=== PATIENT | male | born 1985 | race Caucasian/White ===

== ENCOUNTER → 2016-12-17 | Outpatient (CLI) | payer OTHER ==
--- NOTE | 2016-12-17 08:33 | DIAGNOSTIC IMAGING REPORT ---
MRI OF THE LEFT KNEE CLINICAL HISTORY: Left knee pain. COMPARISON STUDY: Radiograph is a left knee dated 12/03/2016. TECHNIQUE: MRI of the left knee was performed utilizing proton density, T1, and T2-weighted sequences in the axial, sagittal, coronal planes. IV contrast was not administered for this examination. FINDINGS: Menisci: The medial meniscus appears truncated with no discrete tear identified. The lateral meniscus appears intact. Ligaments: The anterior and posterior cruciate ligaments are intact. The medial and lateral collateral ligaments are within normal limits. Extensor mechanism: The extensor mechanism is intact. Hoffa's fat pad is normal in appearance. Articular cartilage and bone: There is an 8 mm osteal defect identified injury along the weightbearing surface in the lateral compartment, best seen on coronal T1 image #17. There is only minimal surrounding marrow edema, and only minimal thinning of the overlying articular cartilage. The articular cartilage is otherwise well maintained throughout all 3 compartments. Joint effusion: There is trace joint fluid. Soft tissues: The musculature surrounding the knee joint is normal in bulk and signal intensity. IMPRESSION: 1. There is no evidence of ligamentous injury in the left knee. 2. There is an 8 mm osteal defect identified along the weightbearing surface in the lateral femoral condyle. There is only minimal marrow edema, and only mild thinning of the overlying cartilage. The appearance suggests an impaction type injury. Osteochondritis desiccation is considered less likely based on the location and appearance but is the top differential consideration. Clinical correlation will be required. 3. The medial meniscus appears slightly truncated/diminutive, with no clear tear identified. Correlate clinically for history of previous tear or surgery. The lateral meniscus is intact. Electronically signed by: Marcel Patel M.D. 12/17/2016 8:32 AM Dictated Date/Time: 12/17/2016 8:06 AM
== END | disposition home or self-care (01) ==
LOC: C.MRIBC 06:45
PROVIDERS: ATTEND Orthopaedic Surgery
DX: M25.562 Pain in left knee (principal)

== ENCOUNTER → 2018-07-10 | Day surgery (SDC) | payer OTHER ==
[2018-07-05 11:20] VITALS: BMI 29.0
[~2018-07-10] VITALS: Ht 193 cm; Wt 110.0 kg
[~2018-07-10] MED LIST: CHOLPOW PO; ESCI1TAB10 PO; LISD40CA PO; LYSI500C4 PO; MULT-506 PO; PROPOFOL IV EMULSION 10 MG/ML 20 ML VIAL ONE; SODIUM CHLORIDE 0.9% 500ML 500 ML IV ONE
[2018-07-10 12:14] VITALS: Ht 193 cm; Wt 110.0 kg
--- NOTE | 2018-07-10 12:50 | Endo History and Physical ---
History & Physical Date of Service: Jul 10, 2018. Chief Complaint: RECTAL BLEEDING Referring Physician: DR. ARROYO History of Present Illness 32 yo CM who presents for colonoscopy secondary to rectal bleeding. Past Surgical History Hx Cardiac Surgery: No Hx Internal Defibrillator: No Hx Pacemaker: No Hx Abdominal Surgery: No Hx of Implantable Prosthesis: No Hx Post-Op Nausea and Vomiting: No Hx Cancer Surgery: No Hx Thoracic Surgery: No Hx Orthopedic: Yes (PLANTAR WORT REMOVAL AT 8 YRS OLD(PT STATES HE HAD GENERAL ANESTHESIA)) Hx Urinary Tract Surgery: No Family History Colon CA, Polyp Social History Smoking Status: Current Some Day Smoker Hx Substance Use: Yes (1 MARIJUANA JOINT EVERY COUPLE MONTHS) Hx Alcohol Use: Yes (OCCASIONAL) Allergies Coded Allergies: Peanut (Verified Allergy, Intermediate, HIVES, 07/05/18) Nickel (Verified Allergy, Mild, RASH, 07/05/18) Current Medications Reported Home Medications Medications Dose Route/Sig Max Daily Dose Days Date Category Vyvanse (Lisdexamfetamine Dimesylate) 40 Mg Cap 40 Mg PO QAM 07/05/18 Reported Multivitamin (Multivitamins) Tab 1 Tab PO DAILY 07/05/18 Reported L-Lysine (Lysine) 500 Mg Cap 1 Cap PO DAILY 07/05/18 Reported Lexapro (Escitalopram Oxalate) 20 Mg Tab 20 Mg PO QPM 07/05/18 Reported Cholestyramine (Cholestyramine (Bulk)) 1 Pow Pow 1 Dose PO DAILY 07/05/18 Reported Vital Signs Weight (Kilograms): 110.00 Height (Feet): 6 Height (Inches): 4 Date Time Temp Pulse Resp B/P (MAP) Pulse Ox O2 Delivery O2 Flow Rate FiO2 07/10/18 12:13 36.9 66 18 140/76 (97) 99 Room Air Physical Exam General Appearance: WD/WN, no apparent distress Respiratory/Chest: Auscultation: breath sounds normal Cardiovascular: Heart Auscultation: RRR Abdomen: Bowel Sounds: normal Inspection & Palpation: soft, non-distended, no tenderness, guarding & rebound Assessment and Plan Assessment: 32 yo CM who presents for colonoscopy secondary to rectal bleeding. Plan: Proceed with colonoscopy.
--- NOTE | 2018-07-10 13:21 | GI REPORT ---
Patient Name: Jesus Manuel Villagomez Procedure Date: 07/10/2018 12:39 PM Date of : 1985 Admit Type: Outpatient Age: 32 Gender: Male Attending MD: Maurice Agrawal DO Procedure: Colonoscopy Providers: Maurice Agrawal DO Referring MD: Bobbi Bruno Indications: Rectal bleeding Medicines: Monitored Anesthesia Care Complications: No immediate complications. Estimated Blood Loss: Estimated blood loss: none. Procedure: Pre-Anesthesia Assessment: - Prior to the procedure, a History and Physical was performed, and patient medications and allergies were reviewed. The patient's tolerance of previous anesthesia was also reviewed. The risks and benefits of the procedure and the sedation options and risks were discussed with the patient. All questions were answered, and informed consent was obtained. Prior Anticoagulants: The patient has taken no previous anticoagulant or antiplatelet agents. ASA Grade Assessment: II - A patient with mild systemic disease. After reviewing the risks and benefits, the patient was deemed in satisfactory condition to undergo the procedure. After I obtained informed consent, the scope was passed under direct vision. Throughout the procedure, the patient's blood pressure, pulse, and oxygen saturations were monitored continuously. The Scope was introduced through the anus and advanced to the terminal ileum. The colonoscopy was performed without difficulty. The patient tolerated the procedure well. The quality of the bowel preparation was good. The terminal ileum, ileocecal valve, appendiceal orifice, and rectum were photographed. Findings: The perianal and digital rectal examinations were normal. A 4 mm polyp was found in the sigmoid colon. The polyp was sessile. The polyp was removed with a cold snare. Resection and retrieval were complete. Multiple small-mouthed diverticula were found in the sigmoid colon. Non-bleeding internal hemorrhoids were found during retroflexion. The hemorrhoids were small. Impression: - One 4 mm polyp in the sigmoid colon, removed with a cold snare. Resected and retrieved. - Diverticulosis in the sigmoid colon. - Non-bleeding internal hemorrhoids. Recommendation: - Resume previous diet. - Continue present medications. - Repeat colonoscopy for surveillance based on pathology results. - Return to primary care physician as previously scheduled. Maurice Agrawal DO 07/10/2018 1:20:42 PM This report has been signed electronically. Note Initiated On: 07/10/2018 12:39 PM Number of Addenda: 0 I attest to the content of the Intraoperative Record and orders documented therein, exceptions below {[id number]}
[2018-07-10 13:49] VITALS: BP 112/69; PULSE 61; O2SAT 99
--- NOTE | 2018-07-10 13:55 | Discharge Instructions ---
Endoscopy Patient Instructions Date / Procedure(s) Performed Jul 10, 2018. Colonoscopy Allergy Information Coded Allergies: Peanut (Verified Allergy, Intermediate, HIVES, 07/05/18) Nickel (Verified Allergy, Mild, RASH, 07/05/18) Discharge Date / Findings Jul 10, 2018. Colon polyp Diverticulosis Internal hemorrhoids Medication Instructions OK to resume all medications today as prescribed Reported Home Medications Medications Dose Route/Sig Max Daily Dose Days Date Category Vyvanse (Lisdexamfetamine Dimesylate) 40 Mg Cap 40 Mg PO QAM 07/05/18 Reported Multivitamin (Multivitamins) Tab 1 Tab PO DAILY 07/05/18 Reported L-Lysine (Lysine) 500 Mg Cap 1 Cap PO DAILY 07/05/18 Reported Lexapro (Escitalopram Oxalate) 20 Mg Tab 20 Mg PO QPM 07/05/18 Reported Cholestyramine (Cholestyramine (Bulk)) 1 Pow Pow 1 Dose PO DAILY 07/05/18 Reported Provider Instructions Activity Restrictions - No exercising or heavy lifting for 24 hours. - Do not drink alcohol the day of the procedure. - Do not drive a car or operate machinery until the day after the procedure. - Do not make any important decisions or sign important papers in 24 hours after the procedure. Following Day: - Return to full activity which may include returning to work/school. Diet Start your diet with liquids and light foods (jello, soup, juice, toast). Then eat your usual diet if not nauseated. Treatment For Common After Affects For mild abdominal pain, bloating, or excessive gas: - Rest - Eat lightly - Lie on right side Follow-Up Information Follow-up with DR. ARROYO as scheduled Anesthesia Information What You Should Know You have had a procedure that required some medicine to reduce anxiety and discomfort. This treatment is called moderate sedation. After receiving the treatment, you may be sleepy, but you will be able to breathe on your own. The effects of the treatment may last for several hours. Follow these instructions along with Activity/Diet recommendations noted above: * Do NOT do anything where dizziness or clumsiness would be dangerous. * Rest quietly at home today, then you can be up and about tomorrow. * Have a responsible person stay with you the rest of today. * You may have had an I.V. today. If so, you may take the dressing off later today. Recommendations Call your doctor if: * Trouble breathing * Continuous vomiting for more than 24 hours * Temperature above 101 degrees * Severe abdominal pain or bloating * Pain not relieved by pain medicine ordered * There is increased drainage or redness from any incision * A large amount of rectal bleeding greater than 2-3 tablespoons. (If you had a polyp/s removed or have hemorrhoids, a small amount of blood - from the rectum is to be expected.) * You have any unanswered questions or concerns. IN THE EVENT OF A SERIOUS EMERGENCY, GO TO THE NEAREST EMERGENCY ROOM Your discharge instructions were prepared by provider Maurice Agrawal. Patient Instructions Signature Page Jesus Manuel Villagomez Patient (or Guardian) Signature/Date: I have read and understand the instructions given to me by my caregivers. Caregiver/RN/Doctor Signature/Date: The above-named patient and/or guardian has received patient instructions on this date. + Original Patient Signature Page (only) stays with chart. Please make copy for patient.
--- NOTE | 2018-07-10 14:11 | Anesthesiology Progress Note ---
Anesthesia Post Op Note Date & Time Jul 10, 2018 at 14:11 Vital Signs Pain Intensity: 0 Vital Signs Past 12 Hours Date Time Temp Pulse Resp B/P (MAP) Pulse Ox O2 Delivery O2 Flow Rate FiO2 07/10/18 13:49 61 18 112/69 (83) 99 Room Air 07/10/18 13:34 56 18 119/74 (89) 99 Room Air 07/10/18 13:18 61 18 112/57 (75) 98 Room Air 07/10/18 12:13 36.9 66 18 140/76 (97) 99 Room Air Notes Mental Status: alert / awake / arousable, participated in evaluation Pt Amnestic to Procedure: Yes Nausea / Vomiting: adequately controlled Pain: adequately controlled Airway Patency, RR, SpO2: stable & adequate BP & HR: stable & adequate Hydration State: stable & adequate Anesthetic Complications: no major complications apparent
== END | disposition home or self-care (01) ==
LOC: C.GI 11:59
PROVIDERS: ATTEND Internal Medicine
DX: K62.5 Hemorrhage of anus and rectum (principal); K63.5 Polyp of colon; K57.30 Diverticulosis of large intestine without perforation or abscess without bleeding; K64.8 Other hemorrhoids; F41.9 Anxiety disorder, unspecified; F32.9 Major depressive disorder, single episode, unspecified; F12.90 Cannabis use, unspecified, uncomplicated; Z91.010 Allergy to peanuts; Z80.0 Family history of malignant neoplasm of digestive organs; Z79.899 Other long term (current) drug therapy

== ENCOUNTER 2025-03-15 20:05 | Inpatient (IN) ==
--- NOTE | 2025-03-15 20:13 | Emergency Department Note ---
Impression & Plan Symptomatic anemia, Bright red rectal bleeding, Dizziness, Syncope ED Provider Note NAME: REGINALD GILES AGE: 39 SEX: M : 1985 ARRIVES VIA: Walk-In INFORMANT: Patient, ED PROVIDER(S): Ryan Barrios MD CHIEF COMPLAINT: Weakness, abnormal outpatient blood work, outpatient referral MEDICAL DECISION MAKING: Patient presents with the above. IV was established and blood work was obtained along with a type and screen. Patient ordered IV fluids PPI bolus and drip as well as chest x-ray and EKG. Patient's blood work shows a leukopenia with a hemoglobin less than eight at 7.8. Normal platelet count. Kidney function is unremarkable. MCV is low. Given the patient's symptomatic anemia we will admit the patient for further evaluation treatment. I did serve the on-call hospital service Dr. Rodriguez after make the patient aware he was comfortable with plan of care. Discussion w/ other healthcare providers: Dr. Rodriguez inpatient medicine service Prior /Outside records reviewed: None Differential diagnosis: Infection, dehydration, metabolic abnormality, hypo/hyperglycemia, electrolyte imbalance, anemia, UTI, pneumonia, thyroid dysfunction among others were considered. Diagnostics, as interpreted by me: ECG: Sinus tachycardia, rate of 102, normal intervals, normal axis no ST elevations, T wave version in lead III noncontiguous leads. Cardiac monitoring: An order was placed for continuous cardiac monitoring. The monitor shows a rate of 95 with regular rhythm. Patient was placed on pulse oximetry Medical decision rules: None Imaging studies: I informally interpreted the patient's chest x-ray without obvious pneumothorax with formal report to follow. HPI: Patient presents due to concern for abnormal outpatient blood work. The patient reports that he had some increasing dizziness and reportedly did pass out last week which prompted the outpatient blood work to be completed. Patient states that the blood work showed that he was anemic and thus he was referred here for further evaluation treatment. The patient states that he does have chronic bloody stools from his IBS but this is not changed. The patient states that the dizziness is new just in the last week or so. The patient states that earlier this year the patient has had sinus infection congestion did have a recent nasopharyngoscope completed to look at his vocal cords. The patient was placed on Flonase and was started on some Protonix in the event that there was a concern for possible reflux associated symptoms. Patient denies any chest pains or shortness of breath. He denies any nausea or vomiting. He does believe that he is getting up to eat and drink. Patient reports that he did have some prior blood work that he was able to pull up that show that he had a hemoglobin of 14 back in 2022. PAST MEDICAL HISTORY: See Below PAST SURGICAL HISTORY: See Below SOCIAL HISTORY: See Below HOME MEDICATIONS: See Below ALLERGIES: See Below VITALS: See Below PHYSICAL EXAMINATION: GENERAL: NAD, non-toxic. Pale in appearance. Wearing glasses. EYE EXAM: Normal conjunctiva. PERRL, no anisocoria and EOM's grossly intact w/o pain. OROPHARYNX: Moist mucus membranes, grossly normal dentition. NECK: Trachea midline, no stridor. Supple, no nuchal rigidity, no adenopathy, non-tender. No signs of meningismus. FROM of the neck with good chin to chest and neck extension. LUNGS: Clear to auscultation. Normal chest wall mechanics. HEART: NSR, no MRG. ABDOMEN: Abdomen soft, non-tender, no masses, no rebound or guarding. BACK: No CVA TTP. SKIN: No rashes and no bruising. UPPER EXTREMITIES: Upper extremities are grossly normal. LOWER EXTREMITIES: Grossly normal, no edema. NEURO EXAM: A&O x3, cranial nerves II-XII grossly intact, normal speech, moves all 4 extremities. Past Med/Surg History Problem List Syncope (Acute) Dizziness (Acute) Bright red rectal bleeding (Acute) Symptomatic anemia (Acute) Vocal cord paresis Gastro-esophageal reflux disease without esophagitis Hoarseness Sinusitis, maxillary, chronic Localized swelling, mass and lump, neck ADHD Depression (Acute) Medical History Asthma High blood pressure Irritable bowel syndrome with diarrhea Bright red rectal bleeding Left knee pain Low back strain Surgical History History of surgery Craniosynostosis surgery S/P wisdom tooth extraction Plantar wart Family History Grandmother (Maternal) Colorectal cancer Mother Depression Colonic polyp Hypertension Father Colonic polyp Hypertension Grandfather (Maternal) Heart disease Other Myocardial infarction Social History Smoking Status: Never smoker Tobacco Type: Cigarettes Age Started Using Tobacco: 14; Age Quit Using Tobacco: 27; packs per day: 1; Second Hand Exposure: No; Do You Dip or Chew Tobacco: No; Hx Alcohol Use: No Hx Substance Use: Yes Preferred Language: Sudanese Communication Ability: Effective Visual Impairment: No Limitations Hearing Ability: Normal Freelance Court Stenographer Required: No Beliefs That Will Affect Care: None marital status: Single Current Living Situation: Alone current occupational status: employed 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 Other Information That Helps Us Care for You: No Feels Safe at Home: Yes Safety Concerns: Feels Safe At This Time Childhood Exposure to Second-Hand Smoke: No caffeine: Yes Dental Care, Regularly: No Physical Activity Frequency: 3-4 Times per Week Gender Identity: Male Assistive Devices: Contacts and Glasses Allergies Allergies Allergy/AdvReac Type Severity Reaction Status Date / Time peanut Allergy Intermediate THROAT Verified 03/15/25 20:51 CLOSED/HIVES nickel Allergy Mild RASH Verified 03/15/25 20:51 Home Meds Home Medications Medication Instructions Recorded Confirmed albuterol sulfate 90 mcg/actuation 2 inh inhalation Q6H PRN Shortness 03/08/25 03/15/25 breath activated powder inhaler Of Breath Or Wheezing escitalopram oxalate 10 mg tablet 10 mg PO DAILY 03/08/25 03/15/25 (Lexapro) lisdexamfetamine 20 mg capsule 20 mg PO DAILY 03/08/25 03/15/25 (Vyvanse) fluticasone propionate 50 2 spray intranasal DAILY 03/15/25 03/15/25 mcg/actuation nasal spray,suspension Previous Rx's Medication Instructions Recorded omeprazole 20 mg capsule,delayed 20 mg PO BID #60 caps 03/08/25 release Results & Data (ED) Vital Signs Vital Signs - 24 hr 03/15/25 20:07 03/15/25 20:19 03/15/25 22:07 Temperature 37.2 C Temperature Source Oral Pulse Rate 127 H 102 H Pulse Rate [Finger] 87 Respiratory Rate 20 16 Respiratory Effort / Characteristics Non-Labored Spontaneous Respiratory Depth Normal Blood Pressure 133/88 Blood Pressure [Right Arm] 112/80 Blood Pressure Mean 103 Blood Pressure Mean [Right Arm] 90 Pulse Oximetry 98 100 Oxygen Delivery Method Room Air Room Air Sepsis Recent Fever Within 48 Hours No Sepsis New/Unexplained Change in Mental Status No Sepsis Action Taken by Nursing No Action Required Home Medications Current Medication List: was personally reviewed by me Laboratory Data Attestation: I reviewed the patient's lab results. 03/16/25 15:26 03/16/25 07:43 Lab Results 03/15/25 03/15/25 03/15/25 Range/Units 20:25 20:25 20:25 WBC 3.98 L (4.8-10.8) K/ul RBC 3.79 L (4.70-6.10) M/uL Hgb 7.8 L (14.0-18.0) g/dl Hct 25.8 L (42.0-52.0) % MCV 68.1 L (80.0-100.0) fL MCH 20.6 L (25.0-34.0) pg MCHC 30.2 L (32.0-36.0) g/dL RDW Std Deviation 35.4 L (36.4-46.3) fL RDW Coeff of Tanisha 14.5 (11.5-14.5) % Plt Count 349 (130-400) K/uL MPV 9.1 L (9.4-12.4) fL Immature Gran % (Auto) 0.3 % Neut % (Auto) 75.8 % Lymph % (Auto) 11.8 % [place] % (Auto) 9.5 % Eos % (Auto) 2.3 % Baso % (Auto) 0.3 % Neut # (Auto) 3.02 (1.40-6.50) K/uL Lymph # (Auto) 0.47 L (1.20-3.40) K/uL [place] # (Auto) 0.38 (0.11-0.59) K/uL Eos # (Auto) 0.09 (0.00-0.50) K/uL Baso # (Auto) 0.01 (0.00-0.20) K/uL Immature Gran # (Auto) 0.01 (0.01-0.20) K/uL Hypochromasia Present Poikilocytosis Present Microcytosis Present PT 11.4 (9.0-12.0) Seconds INR 1.1 (0.9-1.1) D-Dimer 1810 H* (0-500) ug/L FEU Sodium 140 (136-145) mmol/L Potassium 3.7 (3.5-5.1) mmol/L Chloride 106 (98-107) mmol/L Carbon Dioxide 25 (21-32) mmol/L Anion Gap 9 (3-11) BUN 14 (6-23) mg/dl Creatinine 1.20 (0.6-1.4) mg/dl Est Cr Clr Drug Dosing 99.8 ml/min eGFR 79.38 BUN/Creatinine Ratio 11.7 (10-20) Glucose 100 H (70-99(Fasting)) mg/dl Calcium 9.5 (8.6-10.3) mg/dl Magnesium 1.8 (1.7-2.4) mg/dl Iron 13 L (35-175) mcg/dl TIBC 573 H (250-450) mcg/dl Transferrin 409 H (200-360) mg/dl Transferrin % Sat 2 L (20-50) % Total Bilirubin 0.4 (0.2-1.0) mg/dl AST 16 (13-39) U/L ALT 19 (7-52) U/L Alkaline Phosphatase 107 H (34-104) U/L Troponin I High Sens 4.9 (0-20) pg/ml Total Protein 8.1 (6.0-8.3) gm/dl Albumin 4.2 (3.4-5.0) gm/dl Globulin 3.9 (2.5-4.0) gm/dl Albumin/Globulin Ratio 1.1 (0.9-2) Vitamin B12 374 (180-914) pg/ml Folate 11.42 (>5.38) ng/ml TSH 3.699 (0.300-4.500) uIu/ml Blood Type A Positive Cancelled Antibody Screen NEGATIVE Cancelled Crossmatch See Detail Administered Medications Acetaminophen (Acetaminophen 325 Mg Tab) 650 mg PO Q4H PRN PRN Reason: Pain or Fever Stop: 04/14/25 23:25 Last Admin: 03/16/25 09:54 Dose: 650 mg Documented By: AAL Escitalopram Oxalate (Escitalopram Oxalate 10 Mg Tab) 10 mg PO DAILY NABOR Stop: 04/15/25 08:59 Last Admin: 03/16/25 11:21 Dose: 10 mg Documented By: AADon Sodium Chloride (Nss) 1,000 mls @ 125 mls/hr IV .Q8H NABOR Stop: 03/16/25 23:25 Last Infusion: 03/16/25 10:24 Dose: 0 mls/hr Documented By: Admin: 03/16/25 07:54 Dose: 125 mls/hr Documented By: Infusion: 03/16/25 07:32 Dose: Infused Documented By: Admin: 03/15/25 23:32 Dose: 125 mls/hr Documented By: GT Ceftriaxone Sodium (Rocephin) 2,000 mg in 50 mls @ 100 mls/hr IV Q24H NABOR Stop: 03/21/25 04:59 Last Infusion: 03/16/25 05:35 Dose: Infused Documented By: GT Admin: 03/16/25 05:05 Dose: 100 mls/hr Documented By: GT Azithromycin (Zithromax) 500 mg in 255 mls @ 127.5 mls/hr IV Q24H NABOR Stop: 03/21/25 04:59 Last Infusion: 03/16/25 07:24 Dose: Infused Documented By: Admin: 03/16/25 05:05 Dose: 127.5 mls/hr Documented By: GT Pantoprazole Sodium 40 mg/ (Dextrose) 100 mls @ 20 mls/hr IV BID [facility] Stop: 04/15/25 08:59 Last Infusion: 03/16/25 14:11 Dose: Infused Documented By: Admin: 03/16/25 08:53 Dose: 8 mg/hr, 20 mls/hr Documented By: SHERIDAN Miscellaneous (Lisdexamfetamine [Vyvanse] 20 Mg - Order Awaiting Action) 1 each N/A QS NABOR Stop: 04/15/25 00:00 Last Admin: 03/16/25 08:48 Dose: Not Given Documented By: Admin: 03/15/25 23:33 Dose: Not Given Documented By: GT Discontinued Medications Furosemide (Furosemide Inj 20 Mg/2 Ml Vial) 20 mg IV ONE ONE Stop: 03/16/25 11:31 Last Admin: 03/16/25 11:21 Dose: 20 mg Documented By: AADon Sodium Chloride (Nss) 1,000 mls @ 999 mls/hr IV .Q1H1M ONE Stop: 03/15/25 21:22 Last Infusion: 03/15/25 21:46 Dose: Infused Documented By: Admin: 03/15/25 20:37 Dose: 999 mls/hr Documented By: LADY Pantoprazole Sodium 40 mg/ (Dextrose) 100 mls @ 20 mls/hr IV Q5H NABOR Stop: 04/14/25 20:44 Last Infusion: 03/16/25 08:50 Dose: Infused Documented By: Admin: 03/16/25 06:48 Dose: 8 mg/hr, 20 mls/hr Documented By: Infusion: 03/16/25 06:48 Dose: Infused Documented By: Admin: 03/16/25 02:25 Dose: 8 mg/hr, 20 mls/hr Documented By: Infusion: 03/16/25 02:12 Dose: Infused Documented By: Admin: 03/15/25 21:12 Dose: 8 mg/hr, 20 mls/hr Documented By: LADY Pantoprazole Sodium 80 mg/ (Dextrose) 120 mls @ 480 mls/hr IV NOW ONE Stop: 03/15/25 20:43 Last Infusion: 03/15/25 21:10 Dose: Infused Documented By: Admin: 03/15/25 20:50 Dose: 480 mls/hr Documented By: LADY Pantoprazole Sodium 80 mg/ (Dextrose) 120 mls @ 480 mls/hr IV NOW ONE Stop: 03/16/25 08:02 Last Admin: 03/16/25 08:49 Dose: Not Given Documented By: SHERIDAN Pantoprazole Sodium (Pantoprazole Bolus/Drip) 1 each IV NOW STA Stop: 03/15/25 20:30 Last Admin: 03/15/25 20:51 Dose: Not Given Documented By: LADY Pantoprazole Sodium (Pantoprazole Bolus/Drip) 1 each IV NOW STA Stop: 03/16/25 07:49 Last Admin: 03/16/25 08:50 Dose: Not Given Documented By: SHERIDAN Discharge Plan Visit Data Chief Complaint: Abnormal Labs/Diagnostic Testing Stated Complaint: ANEMIC, HIGH HEART RATE, REF BY DOC ED Provider: Ryan Barrios Discharge Problem: Symptomatic anemia, Bright red rectal bleeding, Dizziness, Syncope Patient Disposition: Admitted As Inpatient Discharge Instructions Interventions: ED Discharge Assessment Last Done: 03/15/25 23:00 Discharge Problem: Syncope Qualifiers: Syncope type: unspecified Qualified Code(s): R55 - Syncope and collapse
[2025-03-15] MEDS: SODIUM CHLORIDE 0.9% 1,000 ML IV ONE (20:37)
[2025-03-15 20:44] LABS: Basophils # (auto) 0.01 K/uL (0.00-0.20); Basophils % (auto) 0.3 %; Eosinophils # (auto) 0.09 K/uL (0.00-0.50); Eosinophils % (auto) 2.3 %; Hematocrit (blood only) 25.8 % (42.0-52.0); Hemoglobin 7.8 g/dl (14.0-18.0); Immature Granulocytes # (auto) 0.01 K/uL (0.01-0.20); Immature Granulocytes % (auto) 0.3 %; Lymphocytes # (auto) 0.47 K/uL (1.20-3.40); Lymphocytes % (auto) 11.8 %; Mean Corpuscular Hemoglobin 20.6 pg (25.0-34.0); Mean Corpuscular Hgb Conc 30.2 g/dL (32.0-36.0); Mean Corpuscular Volume 68.1 fL (80.0-100.0); Monocytes # (auto) 0.38 K/uL (0.11-0.59); Monocytes % (auto) 9.5 %; Neutrophils # (auto) 3.02 K/uL (1.40-6.50); Neutrophils % (auto) 75.8 %; RDW Coefficient of Variation 14.5 % (11.5-14.5); RDW Standard Deviation 35.4 fL (36.4-46.3); Red Blood Count 3.79 M/uL (4.70-6.10); White Blood Count 3.98 K/ul (4.8-10.8)
[2025-03-15] MEDS: PANTOprazole 80 MG in DEXTROSE 5% 100 ML IV ONE (20:50)
[2025-03-15] MEDS: PANTOPRAZOLE BOLUS/DRIP IV STA (20:51)
[2025-03-15 21:01] LABS: Albumin Globulin Ratio 1.1 (0.9-2); Albumin Level 4.2 gm/dl (3.4-5.0); BUN Creatinine Ratio 11.7 (10-20); Bilirubin,Total 0.4 mg/dl (0.2-1.0); Calcium 9.5 mg/dl (8.6-10.3); Creatinine Clr Calc Pharmacy 99.8 ml/min; Globulin 3.9 gm/dl (2.5-4.0); Magnesium 1.8 mg/dl (1.7-2.4); Potassium 3.7 mmol/L (3.5-5.1); Total Protein 8.1 gm/dl (6.0-8.3)
[2025-03-15 21:02] LABS: Hypochromasia Present; Mean Platelet Volume 9.1 fL (9.4-12.4); Microcytosis Present; Platelet Count 349 K/uL (130-400); Poikilocytosis Present
[2025-03-15 21:08] LABS: Troponin I High Sensitivity 4.9 pg/ml (0-20)
[2025-03-15] MEDS: PANTOprazole 40 MG in DEXTROSE 5% MINI-B 100 ML IV SCH (21:12)
[2025-03-15 21:17] LABS: INR 1.1 (0.9-1.1); Prothrombin Time 11.4 Seconds (9.0-12.0)
[2025-03-15 21:18] LABS: Thyroid Stimulating Hormone 3.699 uIu/ml (0.300-4.500)
--- NOTE | 2025-03-15 22:33 | History & Physical Report ---
Date of Service March 15, 2025 Assessment & Plan (1) Symptomatic anemia: Plan: 39-year-old male with past medical history significant for asthma, ADHD, depression, anxiety, irritable bowel syndrome comes because of symptomatic anemia. Patient states since last 3 months since she had flu and the sinus infection is feeling weak and achy. Last Tuesday when standing near the fridge he became dizzy felt like passing out, slowly kneeled down and held the floor with his hands and stayed there until he felt better. During that time he did not pass out but could not remember clearly the event. Last 1 to 2 weeks weeks having shortness of breath on exertion and tachycardia. Feeling dizzy on and off. He says he has irritable bowel syndrome and on and off has blood per rectum for last 10 years. Last 1 week the bleeding was more frequent but not unusual as per the patient. Denies any chest pain. No nausea. Micturating okay. No hematuria. Has some headache. Afebrile. In the ER hemodynamics are okay. Resting comfortably. Symptomatic anemia Hemoglobin 7.8 Had episode of near syncope. Dyspnea on exertion. Tachycardia. On and off dizzy Says he has irritable bowel syndrome and has blood per rectum on and off for last 10 years Will check iron studies, vitamin B12 folate levels Blood consent obtained Protonix drip ordered in ER will be continued Will follow H&H closely IV fluids, n.p.o. If hemoglobin drops less than 7 will give PRBC transfusion as patient is young and has no other comorbid condition Closely monitor Multifocal pneumonia elevated d dimer. cta chest no pe and Doppler no dvt but ct chest shows multifocal pneumonia ordered Rocephin and azithromycin ADHD Depression Anxiety Continue home medications DVT prophylaxis SCDs Disposition Telemetry Full code. History of Present Illness Chief Complaint: Symptomatic anemia Primary Care Provider: Nigel Robles 39-year-old male with past medical history significant for asthma, ADHD, depression, anxiety, irritable bowel syndrome comes because of symptomatic anemia. Patient states since last 3 months since she had flu and the sinus infection is feeling weak and achy. Last Tuesday when standing near the fridge he became dizzy felt like passing out, slowly kneeled down and held the floor with his hands and stayed there until he felt better. During that time he did not pass out but could not remember clearly the event. Last 1 to 2 weeks weeks having shortness of breath on exertion and tachycardia. Feeling dizzy on and off. He says he has irritable bowel syndrome and on and off has blood per rectum for last 10 years. Last 1 week the bleeding was more frequent but not unusual as per the patient. Denies any chest pain. No nausea. Micturating okay. No hematuria. Has some headache. Afebrile. In the ER hemodynamics are okay. Resting comfortably. Past medical history. As mentioned above Past surgical history. Dental surgery. Social history. Former smoke cigarettes as per [facility]. No alcohol currently. Uses marijuana as per [facility]. Family history. Father had bladder cancer. Lung cancer. Allergies Allergy/AdvReac Type Severity Reaction Status Date / Time peanut Allergy Intermediate THROAT Verified 03/15/25 20:51 CLOSED/HIVES nickel Allergy Mild RASH Verified 03/15/25 20:51 Home Medications Medication Instructions Recorded Confirmed Type albuterol sulfate 90 mcg/actuation 2 inh inhalation Q6H PRN Shortness 03/08/25 03/15/25 History breath activated powder inhaler Of Breath Or Wheezing escitalopram oxalate 10 mg tablet 10 mg PO DAILY 03/08/25 03/15/25 History (Lexapro) lisdexamfetamine 20 mg capsule 20 mg PO DAILY 03/08/25 03/15/25 History (Vyvanse) omeprazole 20 mg capsule,delayed 20 mg PO BID #60 caps 03/08/25 03/15/25 Rx release fluticasone propionate 50 2 spray intranasal DAILY 03/15/25 03/15/25 History mcg/actuation nasal spray,suspension Past Med/Surg History Problem List (Updated 03/15/25 @ 22:06 by Ryan Barrios MD) Syncope (Acute) Dizziness (Acute) Bright red rectal bleeding (Acute) Symptomatic anemia (Acute) Vocal cord paresis Gastro-esophageal reflux disease without esophagitis Hoarseness Sinusitis, maxillary, chronic Localized swelling, mass and lump, neck ADHD Depression (Acute) Medical History Asthma High blood pressure Irritable bowel syndrome with diarrhea Bright red rectal bleeding Left knee pain Low back strain Surgical History History of surgery Craniosynostosis surgery S/P wisdom tooth extraction Plantar wart Family History Grandmother (Maternal) Colorectal cancer Mother Depression Colonic polyp Hypertension Father Colonic polyp Hypertension Grandfather (Maternal) Heart disease Other Myocardial infarction Social History Smoking Status: Never smoker Tobacco Type: Cigarettes Age Started Using Tobacco: 14; Age Quit Using Tobacco: 27; packs per day: 1; Second Hand Exposure: No; Do You Dip or Chew Tobacco: No; Hx Alcohol Use: No Hx Substance Use: Yes Preferred Language: Montenegrin Communication Ability: Effective Visual Impairment: No Limitations Hearing Ability: Normal Container Filler Required: No Beliefs That Will Affect Care: None marital status: Single Current Living Situation: Alone current occupational status: employed 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 ENT- oropharynx clear Neck- supple, no JVD. Lungs- clear to auscultation no wheezing or crackles Heart- regular rate and rhythm; no murmur, no gallop. Abdomen- normal bowel sounds, soft, nontender, no distension Extremities- no pretibial edema, no erythema seen Neuro- alert, oriented PERRL, no facial palsy; no dysarthria; moves extremities Results & Data Results & Data Vital Signs (Past 12 Hours) Vital Signs Temp Pulse Pulse Resp BP BP Pulse Ox 03/15/25 22:07 87 16 112/80 100 03/15/25 20:19 102 H 03/15/25 20:07 37.2 C 127 H 20 133/88 98 O2 Del Method 03/15/25 22:07 Room Air 03/15/25 20:19 03/15/25 20:07 Room Air Diagnostic Findings Laboratory Results WBC 3.98 K/ul (4.8-10.8) L 03/15/25 20:25 RBC 3.79 M/uL (4.70-6.10) L 03/15/25 20: Hgb 7.8 g/dl (14.0-18.0) L 03/15/25: Hct 25.8 % (42.0-52.0) L 03/15/25: MCV 68.1 fL (80.0-100.0) L 03/15/25: MCH 20.6 pg (25.0-34.0) L 03/15/25: MCHC 30.2 g/dL (32.0-36.0) L 03/15/25: RDW Std Deviation 35.4 fL (36.4-46.3) L 03/15/25: RDW Coeff of Tanisha 14.5 % (11.5-14.5) 03/15/25: Plt Count 349 K/uL (130-400) 03/15/25: MPV 9.1 fL (9.4-12.4) L 03/15/25: Immature Gran % (Auto) 0.3 % 03/15/25: Neut % (Auto) 75.8 % 03/15/25 20: Lymph % (Auto) 11.8 % 03/15/25: [place] % (Auto) 9.5 % 03/15/25: Eos % (Auto) 2.3 % 03/15/25: Baso % (Auto) 0.3 % 03/15/25: Neut # (Auto) 3.02 K/uL (1.40-6.50) 03/15/25 20:25 Lymph # (Auto) 0.47 K/uL (1.20-3.40) L 03/15/25: [place] # (Auto) 0.38 K/uL (0.11-0.59) 03/15/25: Eos # (Auto) 0.09 K/uL (0.00-0.50) 03/15/25 20: Baso # (Auto) 0.01 K/uL (0.00-0.20) 03/15/25: Immature Gran # (Auto) 0.01 K/uL (0.01-0.20) 03/15/25 20:25 Hypochromasia Present 03/15/25 20:25 Poikilocytosis Present 03/15/25 20:25 Microcytosis Present 03/15/25 20:25 PT 11.4 Seconds (9.0-12.0) 03/15/25 20:25 INR 1.1 (0.9-1.1) 03/15/25 20:25 Sodium 140 mmol/L (136-145) 03/15/25 20:25 Potassium 3.7 mmol/L (3.5-5.1) 03/15/25 20: Chloride 106 mmol/L (98-107) 03/15/25: Carbon Dioxide 25 mmol/L (21-32) 03/15/25: Anion Gap 9 (3-11) 03/15/25 20: BUN 14 mg/dl (6-23) 03/15/25: Creatinine 1.20 mg/dl (0.6-1.4) 03/15/25: Est Cr Clr Drug Dosing 99.8 ml/min 03/15/25 20:25 eGFR 79.38 03/15/25 20:25 BUN/Creatinine Ratio 11.7 (10-20) 03/15/25: Glucose 100 mg/dl (70-99(Fasting)) H 03/15/25: Calcium 9.5 mg/dl (8.6-10.3) 03/15/25: Magnesium 1.8 mg/dl (1.7-2.4) 03/15/25: Total Bilirubin 0.4 mg/dl (0.2-1.0) 03/15/25 20:25 AST 16 U/L (13-39) 03/15/25 20:25 ALT 19 U/L (7-52) 03/15/25 20:25 Alkaline Phosphatase 107 U/L (34-104) H 03/15/25 20: Troponin I High Sens 4.9 pg/ml (0-20) 03/15/25 20:25 Total Protein 8.1 gm/dl (6.0-8.3) 03/15/25 20:25 Albumin 4.2 gm/dl (3.4-5.0) 03/15/25 20:25 Globulin 3.9 gm/dl (2.5-4.0) 03/15/25 20:25 Albumin/Globulin Ratio 1.1 (0.9-2) 03/15/25 20:25 TSH 3.699 uIu/ml (0.300-4.500) 03/15/25 20:25 Blood Type Cancelled 03/15/25 20:25 Antibody Screen Cancelled 03/15/25 20:25 ECG Additional Comments: ECG. Sinus tachycardia rate of 102. No acute ST changes seen. Code Status & VTE Plan VTE Prophylaxis Plan VTE Prophylaxis will be ordered: Yes
--- NOTE | 2025-03-15 22:58 | XRay Report ---
Exam(s): XR CXR 1 VIEW EXAM: XR Chest, 1 View CLINICAL HISTORY: Weakness. TECHNIQUE: Frontal view of the chest. COMPARISON: No relevant prior studies available. FINDINGS: Lungs: Bilateral airspace opacities of the upper lobes. Pleural space: Unremarkable. No pneumothorax. Heart: Unremarkable. No cardiomegaly. Mediastinum: Unremarkable. Normal mediastinal contour. Bones/joints: Unremarkable. No acute fracture. IMPRESSION: Bilateral airspace opacities of the upper lobes. Recommend further evaluation with CT of the chest, contrasted if possible. Electronically signed by: Dolores Ferro MD 03/15/25 22:57 PM
[2025-03-15] MEDS ORDERED: NITROGLYCERIN SL 0.4 MG/TAB TAB SL PRN (23:26)
[2025-03-15] MEDS ORDERED: SODIUM CHLORIDE 0.9% 100 ML IV PRN (23:26)
[2025-03-15 23:28] LABS: Folate (Folic Acid),Ser orPlas 11.42 ng/ml (>5.38)
[2025-03-15] MEDS ORDERED: ALBUTEROL HFA 8 GM INHALER INH PRN (23:29)
[2025-03-15] MEDS: SODIUM CHLORIDE 0.9% 1,000 ML IV SCH (23:32)
[2025-03-15 23:49] LABS: D Dimer 1810 ug/L FEU (0-500)
[2025-03-16 01:06] LABS: Appearance Urine Clear (Clear); Bilirubin Urine Negative (Negative); Blood Urine Negative (Negative); Color Urine Yellow; Glucose Urine UA Negative (Negative); Ketones Urine Trace (Negative); Leukocyte Esterase Urine Negative (Negative); Nitrite Urine Negative (Negative); Protein Urine Negative (Negative); Specific Gravity Urine 1.022 (1.000-1.030); Urobilinogen Urine Negative (Negative)
--- NOTE | 2025-03-16 02:06 | CT Scan Report ---
EXAM: CT angio chest PE protocol CLINICAL HISTORY: PE TECHNIQUE: Contiguous axial images were obtained from the neck base through the upper abdomen following intravenous administration of iodinated contrast material. Angiographic images were processed, 3D MIP images were acquired for interpretation. If IV contrast material had not been administered, the likelihood of detecting abnormalities relevant to the patient's condition would have been substantially decreased. Coronal and sagittal 3-D MIPs were likewise performed and indicated to increase the sensitivity of detectin diffuse clinically relevant pathology. CT scan was performed according to ALARA (as low as reasonable achievable). COMPARISON: None. FINDINGS: Multifocal confluent nodular parenchymal infiltrates are noted involving bilateral lungs; predominantly perihilar region- possibility of infective etiology Adequate contrast bolus without evidence of pulmonary embolism. The central airways are patent. No pleural effusion. The heart, aorta, and pulmonary arteries are of normal size and configuration. There are no appreciable coronary artery and aortic atherosclerotic calcifications. No pericardial effusion is identified. The thyroid is unremarkable. No mediastinal, hilar, or axillary lymphadenopathy is noted. No suspicious lytic or sclerotic osseous lesions are identified. IMPRESSION: 1. No evidence of pulmonary embolism 2. Multifocal confluent nodular parenchymal infiltrates / consolidations are noted involving bilateral lungs; predominantly perihilar region- possibility of infective etiology. Correlation with the prior studies/lab and clinical findings / short term (4-5 weeks) follow up is suggested. Electronically signed by Jesu Chanel 03-16-2025 02:06 AM
--- NOTE | 2025-03-16 02:39 | Ultrasound Report ---
EXAM: US venous doppler LE BI CLINICAL HISTORY: elevated dimer. dvt? TECHNIQUE: Grayscale ultrasound, with and without compression, and color Doppler spectral waveform analysis were performed of the deep veins of the left lower extremity from the level of the common femoral veins to the level of the popliteal veins. The posterior tibial and peroneal veins were also scanned. COMPARISON: none. FINDINGS: Left external iliac, common femoral vein, superficial and femoral vein and popliteal vein are compressible and opacify at color Doppler evaluation with no evidence of deep vein thrombosis. There is no evidence of DVT in the visualized portions of the posterior tibial and peroneal veins. IMPRESSION: 1. Negative for deep vein thrombosis. Electronically signed by Jesu Chanel 03-16-2025 02:39 AM
--- OUTSIDE RECORDS SUMMARY | 2025-03-16 02:41 | External Medical Summary | Summary of Care ---
Author Name Unknown Organization [facility] Address [address] [place] [address] Phone [phone] Care Team Providers Care Director Of Research And Development Name Role Phone Nigel Robles MD Primary Care Provider Reason for Visit * Reason Onset Date Comments Medication Refill 03/08/2025 Encounter Details Date Type Department Care Team (Late st Contact Info) Description 03/08/2025 Refill Family [facility] [address] [id number] Nigel Robles MD [address] [id number] Allergies No known active allergiesdocumented as of this encounter (statuses as of 03/09/2025) Medications valACYclovir HCl 1 GM Oral Tablet (Valtrex) Take 1 Tablet by mouth daily as needed for Other (cold sores). 4 Active Continuation of patient use of medical marijuana is approved Use as directed. Active Metamucil 4 in 1 Fiber 55.6 % Oral Powder (Psyllium) Take by mouth 2 times a day. Active Escitalopram Oxalate 10 MG Oral Tablet (Lexapro) Take 1 Tablet by mouth at bedtime. 90 Tablet 3 5 Active Albuterol Sulfate HFA 108 (90 Base) MCG/ACT Inhalation Aerosol Solution Inhale 2 Puffs by mouth 4 times a day as needed for Wheezing or Shortness of Breath. 6.7 g 5 5 Active dexAMETHasone 4 MG Oral Tablet (Decadron) Take 1 Tablet by mouth daily with breakfast. 5 Tablet 5 Active Amoxicillin 500 MG Oral Tablet Take 1 Tablet by mouth in the morning and 1 Tablet before bedtime. 14 Tablet 5 Active Lisdexamfetamin e Dimesylate 30 MG Oral Capsule (Vyvanse) Take 1 Capsule by mouth in the morning. 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 01/21/2023 documented as of this encounter (statuses as of 03/09/2025) Resolved Problems Problem Noted Date Diagnosed Date Resolved Date Attention deficit hyperactiv ity disorder (ADHD) 01/24/2025 01/24/2025 documented as of this encounter (statuses as of 03/09/2025) Immunizations Name Administration Dates Next Due Seasonal Influenza Virus Vac cine, Unspecified Formulation 11/03/2018 TDAP (age 10 and older)(Boostrix) 11/02/2023 documented as of this encounter Social History Tobacco Use Types Packs/Day Years Used Date Smoking Tobacco: Former Cigarettes Passive Smoke Exposure: Past Smokeless Tobacco: Former Snuff Comments:Father smoked Alcohol Use Standard Drinks/Week Comments Not Currently 0 (1 standard drink = 0.6 oz pur e alcohol) PHQ-2 Answer Date Recorded PHQ Adult Total Score 0 11/15/2024 Hunger Vital Sign Answer Date Recorded Within the past 12 months, y ou worried that your food would run out before you got the money to buy more. Never true 11/14/20 24 Within the past 12 months, t he food you bought just didn't last and you didn't have money to get more. Never true 11/14/2024 Childcare Answer Date Recorded Do you feel overwhelmed with taking care of a child, family member or friend? No 11/14/2024 Does your family need help f inding childcare? (Household - for ages 0-17 years) Not on file 11/14/2024 Clothing Answer Date Recorded Have you been unable to get clothing when it was really needed? No 11/14/2024 Is your family able to get c lothes or diapers when needed? (Household - for ages 0-17 years) Not on file 11/14/2024 Personal Safety Answer Date Recorded Do you feel unsafe or have concerns for your saf ety? No 11/14/2024 Do you have concerns for you r family's safety? (Household - for ages 0-17 years) Not on file 11/14/2024 Utilities Answer Date Recorded Do you have trouble paying y our heating, water, or electric bill? No 11/14/2024 Is your family able to pay t he heat, water, or electric bill? (Household - for ages 0-17 years) Not on file 11/14/2024 Does your family have access to good internet? (Household - for ages 0-17 years) Not on file 11/14/2024 Employment Status Answer Date Recorded Are you unemployed or without regular income? No 11/14/2024 Does the household have a haw[employer] cent[employer] source of income? (Household - for ages 0-17 years) Not on file 11/14/2024 Social Connections Answer Date Recorded How often do you feel lonely or isolated from th ose around you? Rarely 11/14/2024 Financial Resource Strain Answer Date R ecorded Do you have any trouble payi ng for your medications, or do you think you might in the future? No 11/14/2024 Does your family have troubl e paying for medicine? (Household - for ages 0-17 years) Not on file 11/14/2024 Transportation Needs Answer Date Record ed Do you have trouble getting a ride to medical visits or work? (Adult - for ages 18 years and over) Not on file 11/14/2024 Does your family have a hard time getting a ride to doctors visits? (Household - for ages 0-17 years) Not on file 11/14/2024 Has lack of transportation k ept you from medical appointments, meetings, work, or from getting things needed for daily living? Check all that apply. No 11/14/2024 Do you (or your family) have trouble finding or paying for a ride (transportation)? (Household - for ages 0-17 years) Not on file 11/14/2024 Housing Stability Answer Date Recorded Do you currently live in a s helter or have no steady place to sleep at night? No 11/14/2024 Do you think you are at risk of becoming homeless? (Adult - for ages 18 years and over) Not on file 11/14/2024 Does your family worry about paying for your home or becoming homeless? (Household - for ages 0-17 years) Not on file 1 01/15/2024 Are you homeless or worried that you might be in the future? No 11/14/2024 Are you (or your family) jaylon eless or worried that you might be in the future? (Household - for ages 0-17 years) Not on file Food Insecurity Answer Date Recorded Do you need food for this week? No 11/14/2024 Are you able to get enough f ood for your family? (Household - for ages 0-17 years) Not on file 11/14/2024 Does your family need food t his week? (Household - for ages 0-17 years) Not on file 11/14/2024 Do you always have enough fo od for your family? (Household - for ages 0-17 years) Not on file 11/14/2024 Food Insecurity Answer Date Recorded Within the past 12 months, y ou worried that your food would run out before you got the money to buy more. Never true 11/14/20 24 Within the past 12 months, t he food you bought just didn't last and you didn't have money to get more. Never true 11/14/2024 Do you need food for this week? 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 Not on file Not on file documented as of this encounter Miscellaneous Notes * Telephone Encounter - Timur Cobian, [facility] - 03/09/2025 11:57 AM EDTRefused Prescriptions: Disp Refills Lisdexamfetamine Dimesylate 30 MG Oral Cap*30 Cap*0 Sig: Take 1Capsule by mouth in the morning.Refused By: TIMUR COBIANReason for Refusal: Too soonReason for Refusal Comment: pt has rx on file from 02/18 documented in this encounter Plan of Treatment Upcoming Encounters Date Type Department Care Team (Late st Contact Info) Description 11/18/2025 10:40 AM EST Office Visit Family Practice [facility] [address] [id number] Nigel Robles MD [address] [id number] Health Maintenance Due Date Last Done Comments Diabetes Screening 1986 Pneumococcal Vaccine: Pediatrics (0 to 5 Years) and At-Risk Patients (6 to 18 Years and 19+ Years) (1 of 2 - PCV) 2005 *SPIROMETRY ONCE FOR ASTHMA-ADULT 01/27/2025 Influenza Vaccine (FLU shot) (Season Ended) 2025 11/03/2018 Depression Monitoring 11/15/2025 11/15/2024 DTap/Tdap Vaccines (2 - Td o r Tdap) 11/02/2033 11/02/2023 COVID-19 Vaccine Discontinued 11/09/2021, 03/30/2021, 02/18/2021 Lipid Panel Completed 01/25/2023 HIV Screening Discontinued HPV (Gardasil) Vaccine Aged Out No lo nger eligible based on patient's age to complete this topic Hepatitis B Vaccine Discontinued Hepatitis C Screening Discontinued MENINGOCOCCAL (MENACTRA/MENVEO) Aged Out No longer eligible based on patient's age to complete this topic Meningitis B Vaccine (Bexsero/Trumemba) Aged Out No longer eligible based on patient's age to complete this topic documented as of this encounter Medical Devices Not on filedocumented as of this encounter Care Teams Director Of Research And Development Relationship Specialty Start Date End Date Nigel Robles MD [address] [facility] [address] [id number] PCP - General Family Medicine 11/15/24 documented as of this encounter
--- OUTSIDE RECORDS SUMMARY | 2025-03-16 02:41 | External Medical Summary | Summary of Care ---
Author Name Unknown Organization [facility] Address [address] [place] [address] Phone [phone] Care Team Providers Care Numerical Control Machine Tool Operator Name Role Phone Nigel Robles MD Primary Care Provider Reason for Visit * Reason Comments Acute Encounter Details Date Type Department Care Team (Late st Contact Info) Description 03/11/2025 1:40 PM EDT Telemedicine Family Practice [facility] [address] [facility] [place] [address] Nigel Robles MD [address] [facility] [place] [address] Dizziness*; Tachycardia; Orthostatic hypotension Allergies No known active allergiesdocumented as of this encounter (statuses as of 03/11/2025) Medications valACYclovir HCl 1 GM Oral Tablet (Valtrex) Take 1 Tablet by mouth daily as needed for Other (cold sores). 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 (Household - for ages [...] on file documented as of this encounter Progress Notes * Nigel Robles MD - 03/11/2025 2:25 PM EDT Images from the original note were not included. History of Present Illness Jesus Manuel Villagomez is a 39 year old male that presents for TV to discuss recent sx and his recent ENT visit. Consents to TV/ He went to ENT and had look at sinuses and throat and was told things are quite swollen and that one of his vocal cords is quite sluggish (but no nodules). He was told had post viral appearance. A follow up has been scheduled and the patient is being set up for a CT scan through ENT office. Of note he has also become dizzy upon standing. This is happening multiple times a day. He nearly passed out when going to the refrigerator the other day. His resting heart rate is ok but gets quite elevated with minimal activity (walking around the house, running the vacuum, etc). He is eating ok.His voice remains somewhat hoarse. He has some fatigue. Going to the bathroom ok. Asking he needs bloodwork or any other testing. Physical Exam There were no vitals taken for this visit. TV I have reviewed most recent labs None Assessment and Plan Dizziness - new, with orthostasis sx. Salt. Isometric exercises. - CORTISOL; Future - CBC WITH WBC DIFFERENTIAL; Future - COMPREHENSIVE METABOLIC PANEL; Future - ERYTHROCYTE SEDIMENTATION RATE (ESR); Future - TSH WITH FREE T4 IF INDICATED; Future Tachycardia - new - CORTISOL; Future - CBC WITH WBC DIFFERENTIAL; Future - COMPREHENSIVE METABOLIC PANEL; Future - ERYTHROCYTE SEDIMENTATION RATE (ESR); Future - TSH WITH FREE T4 IF INDICATED; Future Orthostatic hypotension - new - CORTISOL; Future - CBC WITH WBC DIFFERENTIAL; Future - COMPREHENSIVE METABOLIC PANEL; Future - ERYTHROCYTE SEDIMENTATION RATE (ESR); Future - TSH WITH FREE T4 IF INDICATED; Future Wrap-Up Will check labs Labs will be scanned and emailed to patient He will have done at [facility] Should be early in morning Suspect this is most likely post viral (covid, mono, etc) based on his ENT sx and his physical sx mentioned today Time: I spent a total of 20-29 minutes (exact time 22 mins) on the date of service in preparation, delivery, and documentation of the care provided to Jesus Manuel Villagomez excluding any time spent in the performance of separately billed services. Telemedicine: Patient location: HOME. I was in a hospital or clinic location. After connecting through televideo,patient was verified with two unique identifiers. 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 Methods to assure confidentiality were taken. Patient acknowledged consent and understanding of pr ivacy and security of the Telemedicine visit. The patient agreed to participate. documented in this encounter Plan of Treatment Upcoming Encounters Date Type Department Care Team (Late st Contact Info) Description 11/18/2025 10:40 AM EST [facility] [place] [place] [address] [place] [address] Nigel Robles MD [address] [place] [address] Scheduled Orders Name Type Priority Associated Diagnoses Orde r Schedule CORTISOL Lab Routine Dizziness Tachycardia Orthostatic hypotension Expected: 03/11/2025 (Approximate), Expires: 03/11/2026 CBC WITH WBC DIFFERENTIAL Lab Routine Dizziness Tachycardia Orthostatic hypotension Expected: 03/11/2025 (Approximate), Expires: 03/11/2026 COMPREHENSIVE METABOLIC PANEL Lab Routine Dizziness Tachycardia Orthostatic hypotension Expected: 03/11/2025 (Approximate), Expires: 03/11/2026 ERYTHROCYTE SEDIMENTATION RATE (ESR) Lab Routine Dizziness Tachycardia Orthostatic hypotension Expected: 03/11/2025 (Approximate), Expires: 03/11/2026 TSH WITH FREE T4 IF INDICATED Lab Routine Dizziness Tachycardia Orthostatic hypotension Expected: 03/11/2025 (Approximate), Expires: 03/11/2026 Health Maintenance Due Date Last Done Comments [...] Not on filedocumented as of this encounter Visit Diagnoses Diagnosis Dizziness- Primary Dizziness and giddiness Tachycardia Tachycardia, unspecified Orthostatic hypotension documented in this encounter Care Teams Numerical Control Machine Tool Operator Relationship Specialty Start Date End Date Nigel Robles MD [address] [facility] [place] [address] PCP - General Family Medicine 11/15/24 documented as of this encounter
--- OUTSIDE RECORDS SUMMARY | 2025-03-16 02:42 | External Medical Summary | Summary of Care ---
Author Name Unknown Organization [facility] Address [address] [place] [address] Phone [phone] Care Team Providers Care Hoop Expander Name Role Phone Nigel Robles MD Primary Care Provider Reason for Referral * Evaluate & Treat - Unlimited Visits (Within 10 days (routine)) - Authorized Specialty Diagnoses / Procedures Referred By Cyn t Referred To Contact Otolaryngology Diagnoses Hoarseness Nigel Robles MD [address] [place], [place] [address] [address] Phone: tel: fax: Referral ID Status Reason Start Date Expiration Date Visits Requested Visits Authorized [id number] Authorized Specialty Services Required 02/18/[phone] Question Answer Referral Priority Within 10 days (routine) Where should this appointment be scheduled? External - [facility] - Dr Hernandez or Dr Riley Reason for Referral Throat Conditions Specific Condition: Hoarseness Comments Direct visualization of epiglottis and vocal cords due to hoarseness and recurrent laryngitis sx Reason for Visit * Reason Comments Acute Pt had been seen on 01/24/25. Pt reports that he lost his voice and still feeling sick. Encounter Details Date Type Department Care Team (Late st Contact Info) Description 02/18/2025 10:00 AM EDT Office Visit Family Practice [facility] [address] [place] [address] Nigel Robles MD [address] [place] [address] Hoarseness*; Uvulitis Allergies No known active allergiesdocumented as of this encounter (statuses as of 02/18/2025) Medications valACYclovir HCl 1 GM Oral Tablet (Valtrex) Take 1 Tablet by mouth daily as needed for Other (cold sores). 08/26/20 24 Active Continuation of patient use of medical marijuana is approved Use as directed. Active Metamucil 4 in 1 Fiber 55.6 % Oral Powder (Psyllium) Take by mouth 2 times a day. Active Escitalopram Oxalate 10 MG Oral Tablet (Lexapro) Take 1 Tablet by mouth at bedtime. 90 Tablet 3 01/25/20 25 Active Albuterol Sulfate HFA 108 (90 Base) MCG/ACT Inhalation Aerosol Solution Inhale 2 Puffs by mouth 4 times a day as needed for Wheezing or Shortness of Breath. 6.7 g 5 01/25/20 25 Active dexAMETHasone 4 MG Oral Tablet (Decadron) Take 1 Tablet by mouth daily with breakfast. 5 Tablet 02/19/20 25 Active Amoxicillin 500 MG Oral Tablet Take 1 Tablet by mouth in the morning and 1 Tablet before bedtime. 14 Tablet 02/19/20 25 Active Lisdexamfetami ne Dimesylate 20 MG Oral Capsule (Vyvanse) Take 1 Capsule by mouth in the morning. 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 01/21/2023 documented as of this encounter (statuses as of 02/18/2025) Resolved Problems Problem Noted Date Diagnosed Date Resolved Date Attention deficit hyperactiv ity disorder (ADHD) 01/24/2025 01/24/2025 documented as of this encounter (statuses as of 02/18/2025) Immunizations Name Administration Dates Next Due Seasonal Influenza Virus Vac cine, Unspecified Formulation 11/03/2018 TDAP (age 10 and older)(Boostrix) 11/02/2023 documented as of this encounter Social History Tobacco Use Types Packs/Day Years Used Date Smoking Tobacco: Former Cigarettes Passive Smoke Exposure: Past Smokeless Tobacco: Former Snuff Tobacco Cessation:Counseling Given: Not Answered Comments:Father smoked Alcohol Use Standard Drinks/Week Comments [...] No 11/14/2024 Does the household have a re gular source of income? (Household - for ages [...] money to buy more. Never true 11/14/20 Within the past 12 months, t he [...] on file documented as of this encounter Last Filed Vital Signs Vital Sign Reading Time Taken Comments Blood Pressure 122/76 02/18/2025 9:51 AM EDT Pulse 82 02/18/2025 9:51 AM EDT Temperature 36.8 °C (98.2 °F) 02/18/2025 9:51 AM ED T Respiratory Rate 16 02/18/2025 9:51 AM EDT Oxygen Saturation 99% 02/18/2025 9:51 AM EDT Inhaled Oxygen Concentration - - Weight 109.3 kg (241 lb) 02/18/2025 9:51 AM EDT Height 190.1 cm (6' 2.84") 02/18/2025 9:51 AM ED T Body Mass Index 30.25 02/18/2025 9:51 AM EDT documented in this encounter Progress Notes * Nigel Robles MD - 02/18/2025 10:31 AM EDT Images from the original note were not included. History of Present Illness Jesus Manuel Villagomez is a 39 year old male that presents for Acute (Pt had been seen on 01/24/25. Pt reports that he lost his voice and still feeling sick. ) Physical Exam BP 122/76 (BP Site: Left Arm, BP Position: Sitting, BP Cuff Size: Regular) | Pulse 82 | Temp 98.2 °F (36.8 °C) (Tympanic) | Resp 16 | Ht 6' 2.84" (1.901 m) | Wt 241 lb (109.3 kg) | SpO2 99% | BMI 30.25 kg/m² | BSA 2.4 m² AAOx3 Normal affect NCAT/ PERRL + hoarseness Neck supple Enlarged uvula with blisters noted Ears clear No large cervical nodes RRR Lungs CTABL Ext warm and well perfused No gross neuro deficits Normal gait I have reviewed most recent labs None Assessment and Plan Hoarseness - new. Concern for vocal cord nodule or lesion. Referred to ENT - ADULT/PEDS OTOLARYNGOLOGY REFERRAL OP Uvulitis - new - concerns for strep. Will cover. ADHD - adjustment to vyvanse dose. Wrap-Up Referred to ENT - [facility] for direct visualization of cords/pharnyx Steroid/abx Vocal exercises Adjustment to vyvanse (discussed previously) Time: I spent a total of 20-29 minutes (exact time 22 mins) on the date of service in preparation, delivery, and documentation of the care provided to Jesus Manuel Villagomez excluding any time spent in the performance of separately billed services. documented in this encounter Plan of Treatment Upcoming Encounters Date Type Department Care Team (Late st Contact Info) Description 11/18/2025 10:40 AM EST Office Visit Family [facility] [address] [place] [address] Nigel Robles MD [address] [place] [address] Scheduled Referrals Name Type Priority Associated Diagnoses Order Schedule ADULT/PEDS OTOLARYNGOLOGY REFERRAL OP Referral Within 10 days (routine) Hoarseness Ordered: 02/18/2025 Health Maintenance Due Date Last Done Comments Diabetes Screening 1986 Pneumococcal Vaccine: Pediatrics (0 to 5 Years) and At-Risk Patients (6 to 18 Years and 19+ Years) (1 of 2 - PCV) 2005 Influenza Vaccine (FLU shot) (#1) 2024 11/03/2018 *SPIROMETRY ONCE FOR ASTHMA-ADULT 01/27/2025 Depression Monitoring 11/15/2025 11/15/2024 DTap/Tdap Vaccines (2 [...] as of this encounter Visit Diagnoses Diagnosis Hoarseness- Primary Dysphonia Uvulitis Cellulitis and abscess of oral soft tissues documented in this encounter Care Teams Hoop Expander Relationship Specialty Start Date End Date Nigel Robles MD [address] [place] [address] [place] [address] PCP - General Family Medicine 11/15/24 documented as of this encounter
--- OUTSIDE RECORDS SUMMARY | 2025-03-16 02:42 | External Medical Summary | Summary of Care ---
Author Name Unknown Organization [facility] Address [address] [place] [address] Phone [phone] Care Team Providers Care Dumper Mold Cleaner Name Role Phone Nigel Robles MD Primary Care Provider Encounter Details Date Type Department Care Team (Late st Contact Info) Description 11/20/2024 Orders Only PATIENT PORTAL DO NOT DELETE THIS DEPT USED BY [place] [id number] Allergies No known active allergiesdocumented as of this encounter (statuses as of 11/20/2024) Medications Albuterol Sulfate HFA 108 (90 Base) MCG/ACT Inhalation Aerosol Solution Inhale 2 Puffs by mouth 4 times a day as needed for Wheezing or Shortness of Breath. 4 Active Escitalopram Oxalate 10 MG Oral Tablet (Lexapro) Take 1 Tablet by mouth at bedtime. 4 Active valACYclovir HCl 1 GM Oral Tablet (Valtrex) Take 1 Tablet by mouth daily as needed for Other (cold sores). 4 Active Continuation of patient use of medical marijuana is approved Use as directed. Active Metamucil 4 in 1 Fiber 55.6 % Oral Powder (Psyllium) Take by mouth 2 times a day. Active Lisdexamfetamin e Dimesylate 20 MG Oral Capsule (Vyvanse) Take 1 Capsule by mouth in the morning. 30 Capsule 4 Active documented as of this encounter (statuses as of 11/20/2024) Active Problems Problem Noted Date Diagnosed Date Attention deficit hyperactiv ity disorder (ADHD), combined type 01/21/2023 Mild episode of recurrent major depressive disor daniel 01/21/2023 documented as of this encounter (statuses as of 11/20/2024) Immunizations Name Administration Dates Next Due Seasonal [...] ages 0-17 years) Not on file 11/14/2024 Sex and Gender Information Value Date Recorded Sex Assigned at Male 11/14/2024 9:36 AM EST Legal Sex Male 7:20 AM EST Gender Identity Male 11/14/2024 9:36 AM EST Sexual Orientation Straight 11/14/2024 9: 36 AM EST 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 Not on file Not on file documented as of this encounter Plan of Treatment Upcoming Encounters Date Type Department Care Team (Late st Contact Info) Description 11/18/2025 10:40 AM EST Office Visit Family Practice [facility] [address] [address] Nigel Robles MD [address] [place] [address] Health Maintenance Due Date Last Done Comments Diabetes Screening 1985 Pneumococcal Vaccine: Pediatrics (0 to 5 Years) and At-Risk Patients (6 to 18 Years and 19+ Years) (1 of 2 - PCV) 2005 Influenza Vaccine (FLU shot) (#1) 2024 11/03/2018 Depression Monitoring 11/15/2025 11/15/2024 DTap/Tdap Vaccines (2 - Td o r Tdap) 11/02/2033 11/02/2023 COVID-19 Vaccine Discontinued 11/09/2021, 03/30/2021, 02/18/2021 HIV Screening Discontinued HPV (Gardasil) Vaccine Aged Out No lo nger eligible based on patient's age to complete this topic Hepatitis B Vaccine Discontinued Hepatitis C Screening Discontinued MENINGOCOCCAL (MENACTRA/MENVEO) Aged Out No longer eligible based on patient's age to complete this topic documented as of this encounter Medical Devices Not on filedocumented as of this encounter Care Teams Dumper Mold Cleaner Relationship Specialty Start Date End Date Nigel Robles MD [address] [place] [address] PCP - General Family Medicine 11/15/24 documented as of this encounter
--- OUTSIDE RECORDS SUMMARY | 2025-03-16 02:42 | External Medical Summary | Summary of Care ---
Author Name Unknown Organization [facility] Address [address] [place] [address] Phone [phone] Care Team Providers Care Power Shovel Operator Name Role Phone Nigel Robles MD Primary Care Provider Reason for Visit * Reason Onset Date Comments Medication Refill 01/21/2025 Encounter Details Date Type Department Care Team (Late st Contact Info) Description 01/21/2025 Refill Family [facility] [address] [place] [address] Nigel Robles MD [address] [place] [address] Allergies No known active allergiesdocumented as of this encounter (statuses as of 01/24/2025) Medications Albuterol Sulfate HFA 108 (90 Base) [...] in the morning. 30 Capsule 5 Active Lisdexamfetamin e Dimesylate 20 MG Oral Capsule (Vyvanse) Take 1 Capsule by mouth in the morning. 30 Capsule 4 01/22/20 Discontinu ed(Refill) documented as of this encounter (statuses as of 01/24/2025) Active Problems Problem Noted Date Diagnosed Date Attention deficit hyperactiv ity disorder (ADHD), combined type 01/21/2023 Mild episode of recurrent major depressive disor daniel 01/21/2023 documented as of this encounter (statuses as of 01/24/2025) Immunizations Name Administration Dates Next Due Seasonal [...] 11/14/2024 Does the household have a re lar source of income? (Household - for ages [...] encounter Miscellaneous Notes * Telephone Encounter - Nigel Robles MD - 01/24/2025 8:13 AM EST Reviewed signed and sent. * Telephone Encounter - Nigel Robles MD - 01/24/2025 8:13 AM EST Signed Prescriptions: Disp Refills Lisdexamfetamine Dimesylate 20 MG Oral Cap*30 Cap*0 Sig: Take 1 Capsule by mouth in the morning. Authorizing Provider: NIGEL ROBLES * Telephone Encounter - Augustus Spence [facility] - 01/23/2025 9:25 AM ESTPending Prescriptions: Disp Refills Lisdexamfetamine Dimesylate 20 MG Oral Cap*30 Cap*0 Sig: Take 1 Capsule by mouth in the morning. * Telephone Encounter - Augustus Spence [facility] - 01/23/2025 9:24 AM EST I have reviewed the patient’s controlled substance dispensing history in the Prescription Drug Monitoring Program in compliance with the [facility] regulations before prescribing a controlled substance. PDMP checked on 01/23/2025. Pending Prescriptions: Disp Refills Lisdexamfetamine Dimesylate 20 MG Oral Ca*30 Cap*0 Sig: Take 1 Capsule by mouth in the morning. Last Visit: 11/15/2024 (in office), Visit date not found (telemedicine) Next Visit: 01/24/2025 Date medication was last filled: 11/16/24 Date medication is due for refill: 12/15/24 Pharmacy: [id number] [address] Is this request for a controlled substance? Yes and Urine Drug Screen Not completed Toxicology results: No results found for this or any previous visit. Please approve if appropriate. Thanks, Augustus Spence Rph, Pharm D. Clinical Pharmacist [facility] [phone] 01/23/2025,9:24 AM documented in this encounter Plan of Treatment Upcoming Encounters Date Type Department Care Team (Late st Contact Info) Description 01/24/2025 9:00 AM EST Office Visit [facility] [address] [place] [address] Nigel Robles MD [address] [place] [address] 11/18/2025 10:40 AM EST Office Visit [facility] [address] [place] [address] Nigel Robles MD [address] [place] [address] Health Maintenance Due Date Last Done Comments [...] filedocumented as of this encounter Care Teams Power Shovel Operator Relationship Specialty Start Date End Date Nigel Robles MD [address] [place] [address] PCP - General Family Medicine 11/15/24 documented as of this encounter
--- OUTSIDE RECORDS SUMMARY | 2025-03-16 02:42 | External Medical Summary | Summary of Care ---
Author Name Unknown Organization [facility] Address [address] [place] [address] Phone [phone] Care Team Providers Care Wrong Address Clerk Name Role Phone Nigel Robles MD Primary Care Provider Reason for Visit * Reason Comments Acute Pt was seen at [facility] 12/26/24 for c/o the flu - was started on antibiotics, Pt completed the course of medication as ordered. Pt here today because he is still not feeling well. Pt reports that he has a productive cough in the mornings and a dry cough in the afternoon. Pt is also have fatigue and body aches. Pt states that he is getting "winded" with even light activity (Walking down the ocho[place]). Encounter Details Date Type Department Care Team (Latest Contact Info) Description 01/24/2025 9:00 AM EST Office Visit Family Practice [facility] [address] [id number] Nigel Robles MD [address] [id number] Influenza A*; Intermittent asthma without complication, unspecified asthma severity; ADHD (attention deficit hyperactivity disorder), combined type; Piriformis syndrome, left Allergies No known active allergiesdocumented as of this encounter (statuses as of 01/24/2025) Medications valACYclovir HCl 1 GM Oral Tablet [...] in the morning. 30 Capsule 5 Active predniSONE 20 MG Oral Tablet (Deltasone) 2 tabs daily for 3 days then 1 tab daily for 4 days 10 Tablet 5 Active Escitalopram Oxalate 10 MG Oral Tablet (Lexapro) Take 1 Tablet by mouth at bedtime. 90 Tablet 3 5 Active Albuterol Sulfate HFA 108 (90 Base) MCG/ACT Inhalation Aerosol Solution Inhale 2 Puffs by mouth 4 times a day as needed for Wheezing or Shortness of Breath. 6.7 g 5 5 Active Albuterol Sulfate HFA 108 (90 Base) MCG/ACT Inhalation Aerosol Solution Inhale 2 Puffs by mouth 4 times a day as needed for Wheezing or Shortness of Breath. 4 01/25/20 25 Discontinu ed(Refill) Escitalopram Oxalate 10 MG Oral Tablet (Lexapro) Take 1 Tablet by mouth at bedtime. 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 01/21/2023 documented as of this encounter (statuses as of 01/24/2025) Resolved Problems Problem Noted Date Diagnosed Date [...] Sign Reading Time Taken Comments Blood Pressure 121/85 01/24/2025 9:08 AM EST Pulse 94 01/24/2025 9:08 AM EST Temperature 36 °C (96.8 °F) 01/24/2025 9:08 AM EST Respiratory Rate 16 01/24/2025 9:08 AM EST Oxygen Saturation 98% 01/24/2025 9:08 AM EST Inhaled Oxygen Concentration - - Weight 111.2 kg (245 lb 3.2 oz) 01/24/2025 9:08 AM EST Height 190.1 cm (6' 2.84") 01/24/2025 9:08 AM ES T Body Mass Index 30.78 01/24/2025 9:08 AM EST documented in this encounter Progress Notes * Nigel Robles MD - 01/24/2025 9:40 AM EST Images from the original note were not included. History of Present Illness Jesus Manuel Villagomez is a 39 year old male that presents for Acute (Pt was seen at [facility] 12/26/24 forc/o the flu - was started on antibiotics, Pt completed the course of medication as ordered. Pt heretoday because he is still not feeling well. Pt reports that he has a productive cough in the mornings and a dry cough in the afternoon. Pt is also have fatigue and body aches. Pt states that he is getting "winded" with even light activity (Walking down the [place]). ) Physical Exam BP 121/85 (BP Site: Left Arm, BP Position: Sitting, BP Cuff Size: Regular) | Pulse 94 | Temp 96.8 °F (36 °C) (Tympanic) | Resp 16 | Ht 6' 2.84" (1.901 m) | Wt 245 lb 3.2 oz (111.2 kg) | SpO2 98% | BMI 30.78 kg/m² | BSA 2.42 m² AAOx3 Normal affect NCAT/ PERRL - glasses Neck supple Throat clear RRR Faint rhonchi and wheezing left lung Ext warm and well perfused No gross neuro deficits Normal gait I have reviewed most recent labs None Assessment and Plan Influenza A - precipitating illness. Secondary infection that was treated. Lingering asthma symptoms Intermittent asthma without complication, unspecified asthma severity - worse due to above. Steroid dosing for a week. Inhaler refilled. ADHD (attention deficit hyperactivity disorder), combined type - meds refilled Piriformis syndrome, left - improved as long as he's doing his stretches/exercises - doing them most days Wrap-Up Prn/scheduled Time: I spent a total of 30-39 minutes (exact time 32 mins) on the date of service in preparation, delivery, and documentation of the care provided to Jesus Manuel Villagomez excluding any time spent in the performance of separately billed services. documented in this encounter Plan of Treatment Upcoming Encounters Date Type Department Care Team (Late st Contact Info) Description 11/18/2025 10:40 AM EST Office Visit Family Practice [facility] [address] [phone] Nigel Robles MD [address] [id number] Health Maintenance Due Date Last Done Comments Influenza Vaccine (FLU shot) (#1) 2024 11/03/2018 Diabetes Screening 01/25/2025 Postponed from 1986 (Other) Pneumococcal Vaccine: Pediatrics (0 to 5 Years) and At-Risk Patients (6 to 18 Years and 19+ Years) (1 of 2 - PCV) 01/25/2025 Postponed from 2005 (Acute Illness) Depression Monitoring 11/15/2025 11/15/2024 DTap/Tdap Vaccines (2 - Td o r Tdap) 11/02/2033 11/02/2023 COVID-19 Vaccine Discontinued 11/09/2021, 03/30/2021, 02/18/2021 HIV Screening Discontinued HPV (Gardasil) Vaccine Aged Out No lo nger eligible based on patient's age to complete this topic Hepatitis B Vaccine Discontinued Hepatitis C Screening Discontinued MENINGOCOCCAL (MENACTRA/MENVEO) Aged Out No longer eligible b ased on patient's age to complete this topic Meningitis B Vaccine (Bexsero/Trumemba) Aged Out No longer eligible b ased on patient's age to complete this topic documented as of this encounter Medical Devices Not on filedocumented as of this encounter Visit Diagnoses Diagnosis Influenza A- Primary Influenza with other respiratory manifestations Intermittent asthma without complication, unspecified asthma severity ADHD (attention deficit hyperactivity disorder), combined type Attention deficit disorder with hyperactivity Piriformis syndrome, left documented in this encounter Care Teams Wrong Address Clerk Relationship Specialty Start Date End Date Nigel Robles MD [address] [place] [address] PCP - General Family Medicine 11/15/24 documented as of this encounter
--- OUTSIDE RECORDS SUMMARY | 2025-03-16 02:42 | External Medical Summary | Summary of Care ---
Author Name Unknown Organization [facility] Address [address] [place] [address] Phone [phone] Care Team Providers Care Portal Administrator Name Role Phone Nigel Rboles MD Primary Care Provider Reason for Referral * Evaluate & Treat - Unlimited Visits (Within 10 days (routine)) - Authorized Specialty Diagnoses / Procedures Referred By Cyn t Referred To Contact Otolaryngology Diagnoses Hoarseness Nigel Robles MD [address] [place], [place] [address] [address] Phone: tel: fax: Referral ID Status Reason Start Date Expiration Date Visits Requested Visits Authorized [id number] Authorized Specialty Services Required 02/18/2025 999 999 [...] 10:00 AM EDT Office Visit Family Practice [facility] [address] [place] [place] [address] Nigel Robles MD [address] [place] [address] Hoarseness*; Uvulitis Allergies No known active allergiesdocumented [...] Tablet 02/19/20 25 Active Lisdexamfetami ne Dimesylate 30 MG Oral Capsule (Vyvanse) Take 1 Capsule by mouth in the morning. 30 Capsule 02/19/20 25 Active Lisdexamfetami ne Dimesylate 20 MG Oral Capsule (Vyvanse) Take 1 Capsule by mouth in the morning. 30 Capsule 01/25/20 25 025 Discontinued predniSONE 20 MG Oral Tablet (Deltasone) 2 tabs daily for 3 days then 1 tab daily for 4 days 10 Tablet 01/25/20 25 025 Discontinued(Nv dication List Clean Up) documented as of [...] Wrap-Up Referred to ENT - [facility] for direct visualization of cords/pharnyx Steroid/abx Vocal exercises Adjustment to vyvanse (discussed previously) Time: I spent a total of 20-29 minutes (exact time 22 mins) on the date of service in preparation, delivery, and documentation of the care provided to Jesus Manuel Villagomez excluding any time spent in the performance of separately billed services. documented in this encounter Miscellaneous Notes * Addendum Note - Nigel Robles MD - 02/18/2025 3:34 PM EDTAddended by: NIGEL ROBLES on: 02/18/2025 03:34 PM Modules accepted: Orders documented in this encounter Plan of Treatment Upcoming Encounters Date Type Department Care Team (Late st Contact Info) Description 11/18/2025 10:40 AM EST Office Visit Family [facility] [address] [address] Nigel Robles MD [address] [address] Scheduled Referrals Name Type Priority Associated Diagnoses [...] tissues documented in this encounter Care Teams Portal Administrator Relationship Specialty Start Date End Date Nigel Robles MD [address] [address] PCP - General Family Medicine 11/15/24 documented as of this encounter
--- OUTSIDE RECORDS SUMMARY | 2025-03-16 02:42 | External Medical Summary | Summary of Care ---
Author Name Unknown Organization [facility] Address [address] [place] [address] Phone [phone] Care Team Providers Care Slat Basket Maker Helper Machine Name Role Phone Nigel Robles MD Primary Care Provider Reason for Visit * Reason Comments NEW PATIENT Pt here to establish with our office. Encounter Details Date Type Department Care Team (Latest Contact Info) Description 11/15/2024 8:00 AM EST Office Visit Family [facility] [address] [facility] [place] [phone] Nigel Robles MD [address] [facility] [place] [phone] Encounter for general adult medical examination with abnormal findings*; Piriformis syndrome, left; ADHD (attention deficit hyperactivity disorder), combined type; Mild intermittent asthma in adult without complication Allergies No known active allergiesdocumented as of this encounter (statuses as of 11/15/2024) Medications Albuterol Sulfate HFA 108 (90 Base) [...] by mouth in the morning. 30 Capsule Active Lisdexamfetamin e Dimesylate 20 MG Oral Capsule (Vyvanse) Take 1 Capsule by mouth in the morning. 11/15/20 Discontinu ed(Refill) documented as of this encounter (statuses as of 11/15/2024) Active Problems Problem Noted Date Diagnosed Date Attention deficit hyperactiv ity disorder (ADHD), combined type 01/21/2023 Mild episode of recurrent major depressive disor daniel 01/21/2023 documented as of this encounter (statuses as of 11/15/2024) Immunizations Name Administration Dates Next Due Seasonal Influenza Virus Vac cine, Unspecified Formulation 11/03/2018 TDAP (age 10 and older)(Boostrix) 11/02/2023 documented as of this encounter Social History Tobacco Use Types Packs/Day Years Used Date Smoking Tobacco: Former Cigarettes Passive Smoke Exposure: Past Smokeless Tobacco: Former Snuff Tobacco Cessation:Counseling Given: No Comments:Father smoked Alcohol Use Standard Drinks/Week Comments [...] Sign Reading Time Taken Comments Blood Pressure 140/78 11/15/2024 8:18 AM EST Pulse 78 11/15/2024 8:18 AM EST Temperature 36.4 °C (97.6 °F) 11/15/2024 8:18 AM ES T Respiratory Rate 16 11/15/2024 8:18 AM EST Oxygen Saturation 98% 11/15/2024 8:18 AM EST Inhaled Oxygen Concentration - - Weight 112.3 kg (247 lb 9.6 oz) 11/15/2024 8:18 AM EST Height 190.1 cm (6' 2.84") 11/15/2024 8:18 AM ES T Body Mass Index 31.08 11/15/2024 8:18 AM EST documented in this encounter Progress Notes * Nigel Robles MD - 11/15/2024 8:31 AM EST Images from the original note were not included. History of Present Illness Jesus Manuel Villagomez is a 39 year old male that presents for NEW PATIENT (Pt here to establish with our office. ) Patient recently moved back to the area of [place] - he grew up in the area. [facility] Has a 14 year old son who goes to school in [place]. 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 Physical Exam BP 140/78 (BP Site: Left Arm, BP Position: Sitting, BP Cuff Size: Regular) | Pulse 78 | Temp 97.6 °F (36.4 °C) (Tympanic) | Resp 16 | Ht 6' 2.84" (1.901 m) | Wt 247 lb 9.6 oz (112.3 kg) | SpO2 98% | BMI 31.08 kg/m² | BSA 2.44 m² AAOx3 Normal affect NCAT/ PERRL Neck supple Throat clear RRR Lungs CTABL Abd soft +BS Ext warm and well perfused No gross neuro deficits Normal gait I have reviewed most recent labs Assessment and Plan Encounter for general adult medical examination with abnormal findings - yearly. Discussed screening. Piriformis syndrome, left - continue stretches - these have helped - reviewed hospital note from 10/21/2024. ADHD (attention deficit hyperactivity disorder), combined type - on Vyvanse - refilled. Wrap-Up 1 year prn sooner Time: I spent a total of 30-39 minutes (exact time 33 mins) on the date of service in preparation, delivery, and documentation of the care provided to Jesus Manuel Villagomez excluding any time spent in the performance of separately billed services. documented in this encounter Plan of Treatment Upcoming Encounters Date Type Department Care Team (Late st Contact Info) Description 11/18/2025 10:40 AM EST Office Visit [facility] [address] [place] [address] Nigel Robles MD [address] [place] [address] Scheduled Orders Name Type Priority Associated Diagnoses Orde r Schedule LIPID PANEL WITH DIRECT LDL IF TG IS HIGH Lab Routine Encounter for general adult medical examination with abnormal findings Expected: 11/15/2024, Expires: 11/15/2025 HEMOGLOBIN A1C Lab Routine Encounter for general adult medical examination with abnormal findings Expected: 11/15/2024 (Approximate), Expires: 11/15/2025 Health Maintenance Due Date Last Done Comments Diabetes Screening 1986 Influenza Vaccine (FLU shot) (#1) 2024 11/03/2018 [...] on patient's age to complete this topic Pneumococcal Vaccine: Pediatrics (0 to 5 Years) and At-Risk Patients (6 to 64 Years) Aged Out No longer eligible based on patient's age to complete this topic documented as of this encounter Medical Devices Not on filedocumented as of this encounter Visit Diagnoses Diagnosis Encounter for general adult medical examination with abnormal findings- Primary Unspecified general medical examination Piriformis syndrome, left ADHD (attention deficit hyperactivity disorder), combined type Attention deficit disorder with hyperactivity Mild intermittent asthma in adult without complication documented in this encounter Care Teams Slat Basket Maker Helper Machine Relationship Specialty Start Date End Date Nigel Robles MD [address] [place] [address] PCP - General Family Medicine 11/15/24 documented as of this encounter
[2025-03-16] MEDS: AZITHROMYCIN 500 MG/255 ML BAG IV SCH (05:05)
[2025-03-16] MEDS: cefTRIAXone SODIUM 2,000 MG/50 ML BAG IV SCH (05:05)
[2025-03-16 08:24] LABS: Hematocrit (blood only) 21.8 % (42.0-52.0); Hemoglobin 6.6 g/dl (14.0-18.0); Mean Corpuscular Hemoglobin 20.7 pg (25.0-34.0); Mean Corpuscular Hgb Conc 30.3 g/dL (32.0-36.0); Mean Corpuscular Volume 68.3 fL (80.0-100.0); Mean Platelet Volume 8.9 fL (9.4-12.4); Platelet Count 267 K/uL (130-400); RDW Coefficient of Variation 14.6 % (11.5-14.5); Red Blood Count 3.19 M/uL (4.70-6.10); White Blood Count 3.05 K/ul (4.8-10.8)
[2025-03-16 08:28] LABS: BUN Creatinine Ratio 11.2 (10-20); C Reactive Protein 0.69 mg/dl (0-0.5); Calcium 8.4 mg/dl (8.6-10.3); Creatinine Clr Calc Pharmacy 134.5 ml/min; Eosinophils # (auto) 0.13 K/uL (0.00-0.50); Eosinophils % (auto) 4.3 %; Lymphocytes # (auto) 0.49 K/uL (1.20-3.40); Lymphocytes % (auto) 16.1 %; Magnesium 1.8 mg/dl (1.7-2.4); Microcytosis Present; Monocytes % (auto) 9.8 %; Neutrophils # (auto) 2.13 K/uL (1.40-6.50); Neutrophils % (auto) 69.8 %; Potassium 3.6 mmol/L (3.5-5.1)
[2025-03-16] MEDS: PANTOprazole 80 MG in DEXTROSE 5% 100 ML IV ONE (08:49)
[2025-03-16] MEDS: PANTOPRAZOLE BOLUS/DRIP IV STA (08:50)
[2025-03-16] MEDS ORDERED: SODIUM CHLORIDE 0.9% 100 ML IV PRN (08:50)
[2025-03-16] MEDS: PANTOprazole 40 MG in DEXTROSE 5% MINI-B 100 ML IV SCH (08:53)
[2025-03-16 09:28] LABS: Hematocrit (blood only) 21.5 % (42.0-52.0); Hemoglobin 6.5 g/dl (14.0-18.0); Mean Corpuscular Hemoglobin 20.8 pg (25.0-34.0); Mean Corpuscular Hgb Conc 30.2 g/dL (32.0-36.0); Mean Corpuscular Volume 68.7 fL (80.0-100.0); Mean Platelet Volume 8.8 fL (9.4-12.4); Platelet Count 272 K/uL (130-400); RDW Coefficient of Variation 14.7 % (11.5-14.5); RDW Standard Deviation 36.3 fL (36.4-46.3); Red Blood Count 3.13 M/uL (4.70-6.10); White Blood Count 3.11 K/ul (4.8-10.8)
--- NOTE | 2025-03-16 09:43 | Gastrointestinal Consultation ---
Date of Consultation March 16, 2025 Assessment & Plan (1) Symptomatic anemia: Pleasant gentleman with profound iron deficiency anemia and hemorrhoidal bleeding. He doesn't really describe enough bleeding from his hemorrhoids to cause this significant of an anemia. Iron deficiency anemia is by definition a chronic problem and not an acute blood loss problem. He does need evaluation with EGD and colonoscopy for this problem. We discussed him getting transfusion and doing this as an outpatient but he would prefer to stay in hospital and have this done on Tuesday. Will keep him on clear liquids until then to help with prep. History of Present Illness Reason for Consultation: anemia Attending Physician: Bulmaro Romero MD History of Present Illness 39 year old man with profound microcytic/iron deficiency anemia. He tells me that he got the flu in November and hasn't felt right since. He has had some near syncopal spells over the past week and was admitted due to hemoglobin of 7.8 with microcytic indices. On further labs his iron level was very low as well. He does have fairly regular bleeding that he says is from his hemorrhoids and has been going on for a long time. He describes it as bright red blood in the water and on the paper but not in the stool. He quantifies is as "a tablespoon at most". It doesn't happen with every bowel movement although it can. He also says he can go to the bathroom twice in a short period of time and have bleeding one time and none the next. He denies black stools. He has battled IBS for sometime now and he says he has it fairly well controlled with diet and metamucil. He tends towards loose stools. He denies rectal pain with the bleeding. He has no abdominal complaints. He does take ibuprofen "1-2 per week" and probably took more in November when he was sick. He takes omeprazole now as prescribed by ENT for raspy voice. He denies weight loss Allergies Allergy/AdvReac Type Severity Reaction Status Date / Time peanut Allergy Intermediate THROAT Verified 03/15/25 20:51 CLOSED/HIVES nickel Allergy Mild RASH Verified 03/15/25 20:51 Home Medications Medication Instructions Recorded Confirmed Type albuterol sulfate 90 mcg/actuation 2 inh inhalation Q6H PRN Shortness 03/08/25 03/15/25 History breath activated powder inhaler Of Breath Or Wheezing escitalopram oxalate 10 mg tablet 10 mg PO DAILY 03/08/25 03/15/25 History (Lexapro) lisdexamfetamine 20 mg capsule 20 mg PO DAILY 03/08/25 03/15/25 History (Vyvanse) omeprazole 20 mg capsule,delayed 20 mg PO BID #60 caps 03/08/25 03/15/25 Rx release fluticasone propionate 50 2 spray intranasal DAILY 03/15/25 03/15/25 History mcg/actuation nasal spray,suspension Patient History Medical History Asthma High blood pressure Irritable bowel syndrome with diarrhea Bright red rectal bleeding Left knee pain Low back strain Surgical History History of surgery Craniosynostosis surgery S/P wisdom tooth extraction Plantar wart Family History Grandmother (Maternal) Colorectal cancer Mother Depression Colonic polyp Hypertension Father Colonic polyp Hypertension Grandfather (Maternal) Heart disease Other Myocardial infarction Social History Smoking Status: Never smoker Tobacco Type: Cigarettes Age Started Using Tobacco: 14; Age Quit Using Tobacco: 27; packs per day: 1; Second Hand Exposure: No; Do You Dip or Chew Tobacco: No; Hx Alcohol Use: No Hx Substance Use: Yes Preferred Language: Hebrew Communication Ability: Effective Visual Impairment: No Limitations Hearing Ability: Normal Typing Section Chief Required: No Beliefs That Will Affect Care: None marital status: Single Current Living Situation: Alone current occupational status: employed 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 Other Information That Helps Us Care for You: No Feels Safe at Home: Yes Safety Concerns: Feels Safe At This Time Childhood Exposure to Second-Hand Smoke: No caffeine: Yes Dental Care, Regularly: No Physical Activity Frequency: 3-4 Times per Week Gender Identity: Male Assistive Devices: Contacts and Glasses Review of Systems Review of Systems: All systems reviewed & are unremarkable except as noted in HPI & below Physical Exam Physical Exam: Pleasant man in no distress Constitutional: WD/WN, vitals as above Neck: trachea midline, no thyromegaly Respiratory: normal respiratory effort, lungs clear to auscultation Cardiovascular: RRR, no murmur, no edema Gastrointestinal (Abdomen): normal bowel sounds, soft, nontender, no hepatosplenomegaly Results & Data Vital Signs (Past 12 Hours) Vital Signs Temp Pulse Pulse Resp BP Pulse Ox O2 Del Method 03/16/25 07:44 36.7 C 76 18 127/80 97 Room Air 03/16/25 03:33 37.0 C 89 18 129/85 97 Room Air 03/15/25 23:32 37.2 C 89 18 144/93 H 97 Room Air 03/15/25 23:31 90 03/15/25 23:12 Room Air 03/15/25 23:12 37.2 C 89 18 144/93 H 97 Room Air 03/15/25 22:07 87 16 112/80 100 Room Air Laboratory Results 03/16/25 03/16/25 03/16/25 Range/Units 08:58 08:54 07:43 WBC 3.11 L 3.05 L (4.8-10.8) K/ul RBC 3.13 L 3.19 L (4.70-6.10) M/uL Hgb 6.5 L* 6.6 L* (14.0-18.0) g/dl Hct 21.5 L 21.8 L (42.0-52.0) % MCV 68.7 L 68.3 L (80.0-100.0) fL MCH 20.8 L 20.7 L (25.0-34.0) pg MCHC 30.2 L 30.3 L (32.0-36.0) g/dL RDW Std Deviation 36.3 L 36.0 L (36.4-46.3) fL RDW Coeff of Tanisha 14.7 H 14.6 H (11.5-14.5) % Plt Count 272 267 (130-400) K/uL MPV 8.8 L 8.9 L (9.4-12.4) fL Immature Gran % (Auto) 0.3 0.0 % Neut % (Auto) 67.5 69.8 % Lymph % (Auto) 17.4 16.1 % [place] % (Auto) 10.3 9.8 % Eos % (Auto) 4.2 4.3 % Baso % (Auto) 0.3 0.0 % Neut # (Auto) 2.10 2.13 (1.40-6.50) K/uL Lymph # (Auto) 0.54 L 0.49 L (1.20-3.40) K/uL Clayton # (Auto) 0.32 0.30 (0.11-0.59) K/uL Eos # (Auto) 0.13 0.13 (0.00-0.50) K/uL Baso # (Auto) 0.01 0.00 (0.00-0.20) K/uL Immature Gran # (Auto) 0.01 0.00 L (0.01-0.20) K/uL Hypochromasia Present Poikilocytosis Microcytosis Present Present Ovalocytes 1+ PT (9.0-12.0) Seconds INR (0.9-1.1) D-Dimer (0-500) ug/L FEU Sodium 137 (136-145) mmol/L Potassium 3.6 (3.5-5.1) mmol/L Chloride 106 (98-107) mmol/L Carbon Dioxide 26 (21-32) mmol/L Anion Gap 5 (3-11) BUN 10 (6-23) mg/dl Creatinine 0.89 D (0.6-1.4) mg/dl Est Cr Clr Drug Dosing 134.5 ml/min eGFR 112.49 BUN/Creatinine Ratio 11.2 (10-20) Glucose 98 (70-99(Fasting)) mg/dl Calcium 8.4 L (8.6-10.3) mg/dl Magnesium 1.8 (1.7-2.4) mg/dl Iron (35-175) mcg/dl TIBC (250-450) mcg/dl Transferrin (200-360) mg/dl Transferrin % Sat (20-50) % Total Bilirubin (0.2-1.0) mg/dl AST (13-39) U/L ALT (7-52) U/L Alkaline Phosphatase (34-104) U/L Troponin I High Sens (0-20) pg/ml C-Reactive Protein 0.69 H (0-0.5) mg/dl Total Protein (6.0-8.3) gm/dl Albumin (3.4-5.0) gm/dl Globulin (2.5-4.0) gm/dl Albumin/Globulin Ratio (0.9-2) Vitamin B12 (180-914) pg/ml Folate (>5.38) ng/ml TSH (0.300-4.500) uIu/ml Urine Color Urine Appearance (Clear) Urine pH (4.5-7.5) Ur Specific [place] (1.000-1.030) Urine Protein (Negative) Urine Glucose (UA) (Negative) Urine Ketones (Negative) Urine Blood (Negative) Urine Nitrite (Negative) Urine Bilirubin (Negative) Urine Urobilinogen (Negative) Ur Leukocyte Esterase (Negative) Blood Type Blood Type Recheck Pending Antibody Screen 03/16/25 03/15/25 03/15/25 Range/Units 01:00 20:25 20:25 WBC (4.8-10.8) K/ul RBC (4.70-6.10) M/uL Hgb (14.0-18.0) g/dl Hct (42.0-52.0) % MCV (80.0-100.0) fL MCH (25.0-34.0) pg MCHC (32.0-36.0) g/dL RDW Std Deviation (36.4-46.3) fL RDW Coeff of Tanisha (11.5-14.5) % Plt Count (130-400) K/uL MPV (9.4-12.4) fL Immature Gran % (Auto) % Neut % (Auto) % Lymph % (Auto) % [place] % (Auto) % Eos % (Auto) % Baso % (Auto) % Neut # (Auto) (1.40-6.50) K/uL Lymph # (Auto) (1.20-3.40) K/uL [place] # (Auto) (0.11-0.59) K/uL Eos # (Auto) (0.00-0.50) K/uL Baso # (Auto) (0.00-0.20) K/uL Immature Gran # (Auto) (0.01-0.20) K/uL Hypochromasia Poikilocytosis Microcytosis Ovalocytes PT (9.0-12.0) Seconds INR (0.9-1.1) D-Dimer (0-500) ug/L FEU Sodium (136-145) mmol/L Potassium (3.5-5.1) mmol/L Chloride (98-107) mmol/L Carbon Dioxide (21-32) mmol/L Anion Gap (3-11) BUN (6-23) mg/dl Creatinine (0.6-1.4) mg/dl Est Cr Clr Drug Dosing ml/min eGFR BUN/Creatinine Ratio (10-20) Glucose (70-99(Fasting)) mg/dl Calcium (8.6-10.3) mg/dl Magnesium (1.7-2.4) mg/dl Iron (35-175) mcg/dl TIBC (250-450) mcg/dl Transferrin (200-360) mg/dl Transferrin % Sat (20-50) % Total Bilirubin (0.2-1.0) mg/dl AST (13-39) U/L ALT (7-52) U/L Alkaline Phosphatase (34-104) U/L Troponin I High Sens (0-20) pg/ml C-Reactive Protein (0-0.5) mg/dl Total Protein (6.0-8.3) gm/dl Albumin (3.4-5.0) gm/dl Globulin (2.5-4.0) gm/dl Albumin/Globulin Ratio (0.9-2) Vitamin B12 (180-914) pg/ml Folate (>5.38) ng/ml TSH (0.300-4.500) uIu/ml Urine Color Yellow Urine Appearance Clear (Clear) Urine pH 6.0 (4.5-7.5) Ur Specific [place] 1.022 (1.000-1.030) Urine Protein Negative (Negative) Urine Glucose (UA) Negative (Negative) Urine Ketones Trace H (Negative) Urine Blood Negative (Negative) Urine Nitrite Negative (Negative) Urine Bilirubin Negative (Negative) Urine Urobilinogen Negative (Negative) Ur Leukocyte Esterase Negative (Negative) Blood Type Cancelled Blood Type Recheck Antibody Screen Cancelled NEGATIVE 03/15/25 Range/Units 20:25 WBC 3.98 L (4.8-10.8) K/ul RBC 3.79 L (4.70-6.10) M/uL Hgb 7.8 L (14.0-18.0) g/dl Hct 25.8 L (42.0-52.0) % MCV 68.1 L (80.0-100.0) fL MCH 20.6 L (25.0-34.0) pg MCHC 30.2 L (32.0-36.0) g/dL RDW Std Deviation 35.4 L (36.4-46.3) fL RDW Coeff of Tanisha 14.5 (11.5-14.5) % Plt Count 349 (130-400) K/uL MPV 9.1 L (9.4-12.4) fL Immature Gran % (Auto) 0.3 % Neut % (Auto) 75.8 % Lymph % (Auto) 11.8 % [place] % (Auto) 9.5 % Eos % (Auto) 2.3 % Baso % (Auto) 0.3 % Neut # (Auto) 3.02 (1.40-6.50) K/uL Lymph # (Auto) 0.47 L (1.20-3.40) K/uL [place] # (Auto) 0.38 (0.11-0.59) K/uL Eos # (Auto) 0.09 (0.00-0.50) K/uL Baso # (Auto) 0.01 (0.00-0.20) K/uL Immature Gran # (Auto) 0.01 (0.01-0.20) K/uL Hypochromasia Present Poikilocytosis Present Microcytosis Present Ovalocytes PT 11.4 (9.0-12.0) Seconds INR 1.1 (0.9-1.1) D-Dimer 1810 H* (0-500) ug/L FEU Sodium 140 (136-145) mmol/L Potassium 3.7 (3.5-5.1) mmol/L Chloride 106 (98-107) mmol/L Carbon Dioxide 25 (21-32) mmol/L Anion Gap 9 (3-11) BUN 14 (6-23) mg/dl Creatinine 1.20 (0.6-1.4) mg/dl Est Cr Clr Drug Dosing 99.8 ml/min eGFR 79.38 BUN/Creatinine Ratio 11.7 (10-20) Glucose 100 H (70-99(Fasting)) mg/dl Calcium 9.5 (8.6-10.3) mg/dl Magnesium 1.8 (1.7-2.4) mg/dl Iron 13 L (35-175) mcg/dl TIBC 573 H (250-450) mcg/dl Transferrin 409 H (200-360) mg/dl Transferrin % Sat 2 L (20-50) % Total Bilirubin 0.4 (0.2-1.0) mg/dl AST 16 (13-39) U/L ALT 19 (7-52) U/L Alkaline Phosphatase 107 H (34-104) U/L Troponin I High Sens 4.9 (0-20) pg/ml C-Reactive Protein (0-0.5) mg/dl Total Protein 8.1 (6.0-8.3) gm/dl Albumin 4.2 (3.4-5.0) gm/dl Globulin 3.9 (2.5-4.0) gm/dl Albumin/Globulin Ratio 1.1 (0.9-2) Vitamin B12 374 (180-914) pg/ml Folate 11.42 (>5.38) ng/ml TSH 3.699 (0.300-4.500) uIu/ml Urine Color Urine Appearance (Clear) Urine pH (4.5-7.5) Ur Specific [place] (1.000-1.030) Urine Protein (Negative) Urine Glucose (UA) (Negative) Urine Ketones (Negative) Urine Blood (Negative) Urine Nitrite (Negative) Urine Bilirubin (Negative) Urine Urobilinogen (Negative) Ur Leukocyte Esterase (Negative) Blood Type A Positive Blood Type Recheck Antibody Screen Diagnostic Findings Chest X-Ray 03/15/25 20:22 Exam(s): XR CXR 1 VIEW EXAM: XR Chest, 1 View CLINICAL HISTORY: Weakness. TECHNIQUE: Frontal view of the chest. COMPARISON: No relevant prior studies available. FINDINGS: Lungs: Bilateral airspace opacities of the upper lobes. Pleural space: Unremarkable. No pneumothorax. Heart: Unremarkable. No cardiomegaly. Mediastinum: Unremarkable. Normal mediastinal contour. Bones/joints: Unremarkable. No acute fracture. IMPRESSION: Bilateral airspace opacities of the upper lobes. Recommend further evaluation with CT of the chest, contrasted if possible. Electronically signed by: Dolores Ferro MD 03/15/25 22:57 PM Chest CTA 03/16/25 00:22 EXAM: CT angio chest PE protocol CLINICAL HISTORY: PE TECHNIQUE: Contiguous axial images were obtained from the neck base through the upper abdomen following intravenous administration of iodinated contrast material. Angiographic images were processed, 3D MIP images were acquired for interpretation. If IV contrast material had not been administered, the likelihood of detecting abnormalities relevant to the patient's condition would have been substantially decreased. Coronal and sagittal 3-D MIPs were likewise performed and indicated to increase the sensitivity of detectin diffuse clinically relevant pathology. CT scan was performed according to ALARA (as low as reasonable achievable). COMPARISON: None. FINDINGS: Multifocal confluent nodular parenchymal infiltrates are noted involving bilateral lungs; predominantly perihilar region- possibility of infective etiology Adequate contrast bolus without evidence of pulmonary embolism. The central airways are patent. No pleural effusion. The heart, aorta, and pulmonary arteries are of normal size and configuration. There are no appreciable coronary artery and aortic atherosclerotic calcifications. No pericardial effusion is identified. The thyroid is unremarkable. No mediastinal, hilar, or axillary lymphadenopathy is noted. No suspicious lytic or sclerotic osseous lesions are identified. IMPRESSION: 1. No evidence of pulmonary embolism 2. Multifocal confluent nodular parenchymal infiltrates / consolidations are noted involving bilateral lungs; predominantly perihilar region- possibility of infective etiology. Correlation with the prior studies/lab and clinical findings / short term (4-5 weeks) follow up is suggested. Electronically signed by Jesu Chanel 03-16-2025 02:06 AM Venous Doppler Study 03/16/25 00:22 EXAM: US venous doppler LE BI CLINICAL HISTORY: elevated dimer. dvt? TECHNIQUE: Grayscale ultrasound, with and without compression, and color Doppler spectral waveform analysis were performed of the deep veins of the left lower extremity from the level of the common femoral veins to the level of the popliteal veins. The posterior tibial and peroneal veins were also scanned. COMPARISON: none. FINDINGS: Left external iliac, common femoral vein, superficial and femoral vein and popliteal vein are compressible and opacify at color Doppler evaluation with no evidence of deep vein thrombosis. There is no evidence of DVT in the visualized portions of the posterior tibial and peroneal veins. IMPRESSION: 1. Negative for deep vein thrombosis. Electronically signed by Jesu Chanel 03-16-2025 02:39 AM
[2025-03-16 09:44] LABS: Basophils # (auto) 0.01 K/uL (0.00-0.20); Basophils % (auto) 0.3 %; Eosinophils # (auto) 0.13 K/uL (0.00-0.50); Eosinophils % (auto) 4.2 %; Hypochromasia Present; Immature Granulocytes # (auto) 0.01 K/uL (0.01-0.20); Immature Granulocytes % (auto) 0.3 %; Lymphocytes # (auto) 0.54 K/uL (1.20-3.40); Lymphocytes % (auto) 17.4 %; Microcytosis Present; Monocytes # (auto) 0.32 K/uL (0.11-0.59); Monocytes % (auto) 10.3 %; Neutrophils % (auto) 67.5 %; Ovalocytes 1+
[2025-03-16] MEDS: ACETAMINOPHEN 325 MG TAB PO PRN (09:54)
[2025-03-16] MEDS: FUROSEMIDE INJ 20 MG/2 ML VIAL IV ONE (11:21)
[2025-03-16] MEDS: ESCITALOPRAM OXALATE 10 MG TAB PO SCH (11:21)
--- NOTE | 2025-03-16 13:01 | Hospitalist Progress Note ---
Date of Service March 16, 2025 Assessment & Plan (1) Symptomatic anemia: Plan: 39-year-old male with past medical history significant for asthma, ADHD, depression, anxiety, irritable bowel syndrome comes because of symptomatic anemia. Patient states since last 3 months since she had flu and the sinus infection is feeling weak and achy. Symptomatic Acute Blood Loss Anemia Iron Deficiency Anemia -Hemoglobin 7.8, now down to 6.5 -Had episode of near syncope. Dyspnea on exertion. Tachycardia. -On and off dizzy -Says he has irritable bowel syndrome and has blood per rectum on and off for last 10 years Plan: -40 IV bid protonix -CBC q12 hours -consented for blood, transfuse 2 units -GI consulted, EGD/colonoscopy Tuesday -hgb goal>7 Multifocal pneumonia -elevated d dimer. cta chest no pe and Doppler no dvt -but ct chest shows multifocal pneumonia Plan: -continue Rocephin and azithromycin ADHD Depression -Anxiety -Continue home medications I spent a total of 60 minutes in direct patient care, including [id number] time with the patient and/or family, reviewing medical records, ordering and reviewing diagnostic tests, and coordinating care with other healthcare providers. This time includes: history taking, physical examination, medical decision making, counseling, ECG interpretation, imaging interpretation, lab interpretation, orders, and education, excluding time spent in the performance of separately billed services. Admission and Anticipated Discharge Date Admission Date: March 15, 2025 Subjective Patient seen and examined at bedside. Patient doing ok today. States he has been getting lightheaded recently and it has been getting worse. States he has had blood loss, bright red, in his stool for weeks. He states he always has a little bit, from hemorrhoids, but he states its a bit different now. Denies SOB or cough, has been having upper respiratory symptoms past few months, although they have improved recently. Review of Systems Review of Systems: CONSTITUTIONAL: fatigue EYES: Patient denies any visual symptoms. EARS, NOSE, AND THROAT: No difficulties with hearing. No symptoms of rhinitis or sore throat. CARDIOVASCULAR: Patient denies chest pains, palpitations, orthopnea and paroxysmal nocturnal dyspnea. RESPIRATORY: No dyspnea on exertion, no wheezing or cough. GI: red blood per rectum : No urinary hesitancy or dribbling. No nocturia or urinary frequency. No abnormal urethral discharge. MUSCULOSKELETAL: No myalgias or arthralgias. NEUROLOGIC: No chronic headaches, no seizures. Patient denies numbness, tingling or weakness. PSYCHIATRIC: Patient denies problems with mood disturbance. No problems with anxiety. ENDOCRINE: No excessive urination or excessive thirst. DERMATOLOGIC: Patient denies any rashes or skin changes. Physical Exam Physical Exam: Gen: A&O 3 NAD, pale HEENT: NCAT, EOMI, not icteric. External ears normal. No rhinorrhea. Moist mucous membranes. Neck: Supple, full range of motion, no observable masses, No meningeal sign. Lungs: No Respiratory distress. CV: RRR, no edema. Abdomen: Soft, nondistended, No rebound tenderness. MSK: No joint swelling, no redness. Skin: No rashes, petechiae, lesions. Normal color per patient. Neuro: Normal Gait, Grossly intact. Psych: Appropriate for situation. Results & Data Results & Data Vital Signs (Past 12 Hours) Vital Signs Temp Pulse Pulse Resp BP BP Pulse Ox 03/16/25 12:20 36.7 C 86 14 120/79 97 03/16/25 11:28 36.9 C 87 18 145/91 H 98 03/16/25 11:20 37.0 C 87 16 142/90 H 98 03/16/25 10:50 36.8 C 87 16 146/88 H 97 03/16/25 10:35 36.9 C 81 18 150/95 H 98 03/16/25 10:33 36.9 C 82 18 150/95 H 98 03/16/25 10:27 03/16/25 10:15 36.9 C 72 16 138/86 98 03/16/25 07:44 36.7 C 76 18 127/80 97 03/16/25 03:33 37.0 C 89 18 129/85 97 O2 Del Method 03/16/25 12:20 03/16/25 11:28 Room Air 03/16/25 11:20 03/16/25 10:50 03/16/25 10:35 03/16/25 10:33 03/16/25 10:27 Room Air 03/16/25 10:15 03/16/25 07:44 Room Air 03/16/25 03:33 Room Air Laboratory Results -personally reviewed, baseline Hgb 13-14, current 6.5 indicative of blood loss anemia, D-dimer of 1800 could be indicat Medications Administered Acetaminophen (Acetaminophen 325 Mg Tab) 650 mg PO Q4H PRN PRN Reason: Pain or Fever Stop: 04/14/25 23:25 Last Admin: 03/16/25 09:54 Dose: 650 mg Documented By: SHERIDAN Escitalopram Oxalate (Escitalopram Oxalate 10 Mg Tab) 10 mg PO DAILY NABOR Stop: 04/15/25 08:59 Last Admin: 03/16/25 11:21 Dose: 10 mg Documented By: AADon Sodium Chloride (Nss) 1,000 mls @ 125 mls/hr IV .Q8H [facility] Stop: 03/16/25 23:25 Last Infusion: 03/16/25 10:24 Dose: 0 mls/hr Documented By: Admin: 03/16/25 07:54 Dose: 125 mls/hr Documented By: Infusion: 03/16/25 07:32 Dose: Infused Documented By: AADon Admin: 03/15/25 23:32 Dose: 125 mls/hr Documented By: GTNimco Ceftriaxone Sodium (Rocephin) 2,000 mg in 50 mls @ 100 mls/hr IV Q24H [facility] Stop: 03/21/25 04:59 Last Infusion: 03/16/25 05:35 Dose: Infused Documented By: GTNimco Admin: 03/16/25 05:05 Dose: 100 mls/hr Documented By: GTNimco Azithromycin (Zithromax) 500 mg in 255 mls @ 127.5 mls/hr IV Q24H [facility] Stop: 03/21/25 04:59 Last Infusion: 03/16/25 07:24 Dose: Infused Documented By: AADon Admin: 03/16/25 05:05 Dose: 127.5 mls/hr Documented By: GTNimco Pantoprazole Sodium 40 mg/ (Dextrose) 100 mls @ 20 mls/hr IV BID [facility] Stop: 04/15/25 08:59 Last Admin: 03/16/25 08:53 Dose: 8 mg/hr, 20 mls/hr Documented By: SHERIDAN Miscellaneous (Lisdexamfetamine [Vyvanse] 20 Mg - Order Awaiting Action) 1 each N/A QS [facility] Stop: 04/15/25 00:00 Last Admin: 03/16/25 08:48 Dose: Not Given Documented By: Admin: 03/15/25 23:33 Dose: Not Given Documented By: ARCENIO
[2025-03-16 15:51] LABS: Hematocrit (blood only) 25.5 % (42.0-52.0); Hemoglobin 7.8 g/dl (14.0-18.0); Mean Corpuscular Hemoglobin 21.7 pg (25.0-34.0); Mean Corpuscular Hgb Conc 30.6 g/dL (32.0-36.0); Mean Platelet Volume 9.7 fL (9.4-12.4); Platelet Count 280 K/uL (130-400); RDW Coefficient of Variation 16.2 % (11.5-14.5); RDW Standard Deviation 40.3 fL (36.4-46.3); Red Blood Count 3.59 M/uL (4.70-6.10); Reticulocyte % 0.95 % (0.50-2.00); White Blood Count 3.46 K/ul (4.8-10.8)
[2025-03-17 03:52] LABS: Hematocrit (blood only) 25.3 % (42.0-52.0); Hemoglobin 7.6 g/dl (14.0-18.0)
--- NOTE | 2025-03-17 09:18 | Gastroenterology Progress Note ---
Date of Service March 17, 2025 Assessment & Plan (1) Symptomatic anemia: Plan: Doing well. Will do EGD/Colon tomorrow Admission and Anticipated Discharge Date Admission Date: March 15, 2025 Subjective Feeling well. Ready for procedures tomorrow Physical Exam Physical Exam: He looks well Constitutional: WD/WN, vitals as above Results & Data Vital Signs (Past 12 Hours) Vital Signs Temp Pulse Pulse Resp BP Pulse Ox O2 Del Method 03/17/25 07:54 36.7 C 87 18 126/82 98 Room Air 03/17/25 07:13 71 03/17/25 07:13 Room Air 03/17/25 02:54 36.9 C 69 18 140/69 96 Room Air 03/16/25 23:29 36.5 C 63 18 174/93 H 98 Room Air 03/16/25 21:59 78
[2025-03-17 12:02] LABS: Hematocrit (blood only) 26.9 % (42.0-52.0); Hemoglobin 8.1 g/dl (14.0-18.0); Mean Corpuscular Hemoglobin 21.4 pg (25.0-34.0); Mean Corpuscular Hgb Conc 30.1 g/dL (32.0-36.0); Mean Platelet Volume 8.7 fL (9.4-12.4); Platelet Count 275 K/uL (130-400); RDW Coefficient of Variation 15.9 % (11.5-14.5); RDW Standard Deviation 39.5 fL (36.4-46.3); Red Blood Count 3.79 M/uL (4.70-6.10); White Blood Count 3.81 K/ul (4.8-10.8)
--- NOTE | 2025-03-17 12:58 | Electrocardiogram Report ---
Test Reason : Blood Pressure : */* mmHG Vent. Rate : 102 BPM Atrial Rate : 102 BPM P-R Int : 134 ms QRS Dur : 86 ms QT Int : 332 ms P-R-T Axes : 53 52 38 degrees QTcB Int : 432 ms Sinus tachycardia Otherwise normal ECG No previous ECGs available Confirmed by Wagner Girard ([id number]) on 03/17/2025 12:58:05 PM Referred By: REFERRED SELF Confirmed By: Wagner Girard
[2025-03-17] MEDS: ONDANSETRON INJ 2 MG/ML 2 ML VIAL IV PRN (13:45)
--- NOTE | 2025-03-17 15:53 | Hospitalist Progress Note ---
Date of Service March 17, 2025 Assessment & Plan (1) Symptomatic anemia: Plan: 39-year-old male with past medical history significant for asthma, ADHD, depression, anxiety, irritable bowel syndrome comes because of symptomatic anemia. Patient states since last 3 months since she had flu and the sinus infection is feeling weak and achy. Symptomatic Acute Blood Loss Anemia Iron Deficiency Anemia -Hemoglobin 7.8, now down to 6.5 -Had episode of near syncope. Dyspnea on exertion. Tachycardia. -On and off dizzy -Says he has irritable bowel syndrome and has blood per rectum on and off for last 10 years Plan: -40 IV bid protonix -CBC q12 hours -consented for blood, transfuse 2 units -GI consulted, EGD/colonoscopy Tuesday, prep ordered, NPO after midnight ordered -hgb goal>7 Multifocal pneumonia -elevated d dimer. cta chest no pe and Doppler no dvt -but ct chest shows multifocal pneumonia Plan: -continue Rocephin and azithromycin x5 days (day 2/5) ADHD Depression -Anxiety -Continue home medications I spent a total of 50 minutes in direct patient care, including [id number] time with the patient and/or family, reviewing medical records, ordering and reviewing diagnostic tests, and coordinating care with other healthcare providers. This time includes: history taking, physical examination, medical decision making, counseling, ECG interpretation, imaging interpretation, lab interpretation, orders, and education, excluding time spent in the performance of separately billed services. Admission and Anticipated Discharge Date Admission Date: March 15, 2025 Subjective Patient seen and examined at bedside. Mr. Villagomez is doing ok today. States he feels better than yesterday. Review of Systems Review of Systems: CONSTITUTIONAL: fatigue EYES: Patient denies any visual symptoms. EARS, NOSE, AND THROAT: No difficulties with hearing. No symptoms of rhinitis or sore throat. CARDIOVASCULAR: Patient denies chest pains, palpitations, orthopnea and paroxysmal nocturnal dyspnea. RESPIRATORY: No dyspnea on exertion, no wheezing or cough. GI: red blood per rectum : No urinary hesitancy or dribbling. No nocturia or urinary frequency. No abnormal urethral discharge. MUSCULOSKELETAL: No myalgias or arthralgias. NEUROLOGIC: No chronic headaches, no seizures. Patient denies numbness, tingling or weakness. PSYCHIATRIC: Patient denies problems with mood disturbance. No problems with anxiety. ENDOCRINE: No excessive urination or excessive thirst. DERMATOLOGIC: Patient denies any rashes or skin changes. Physical Exam Physical Exam: Gen: A&O 3 NAD, less pale today HEENT: NCAT, EOMI, not icteric. External ears normal. No rhinorrhea. Moist mucous membranes. Neck: Supple, full range of motion, no observable masses, No meningeal sign. Lungs: No Respiratory distress. CV: RRR, no edema. Abdomen: Soft, nondistended, No rebound tenderness. MSK: No joint swelling, no redness. Skin: No rashes, petechiae, lesions. Normal color per patient. Neuro: Normal Gait, Grossly intact. Psych: Appropriate for situation. Results & Data Results & Data Vital Signs (Past 12 Hours) Vital Signs Temp Pulse Pulse Resp BP Pulse Ox O2 Del Method 03/17/25 14:33 80 03/17/25 11:45 37.0 C 77 18 128/77 98 Room Air 03/17/25 07:54 36.7 C 87 18 126/82 98 Room Air 03/17/25 07:13 71 03/17/25 07:13 Room Air Laboratory Results -personally reviewed, Hgb stable post transfusion Medications Administered Acetaminophen (Acetaminophen 325 Mg Tab) 650 mg PO Q4H PRN PRN Reason: Pain or Fever Stop: 04/14/25 23:25 Last Admin: 03/17/25 01:24 Dose: 650 mg Documented By: Admin: 03/16/25 09:54 Dose: 650 mg Documented By: SHERIDAN Escitalopram Oxalate (Escitalopram Oxalate 10 Mg Tab) 10 mg PO DAILY [facility] Stop: 04/15/25 08:59 Last Admin: 03/17/25 08:37 Dose: 10 mg Documented By: AADon Admin: 03/16/25 11:21 Dose: 10 mg Documented By: AADon Ceftriaxone Sodium (Rocephin) 2,000 mg in 50 mls @ 100 mls/hr IV Q24H [facility] Stop: 03/21/25 04:59 Last Infusion: 03/17/25 06:39 Dose: Infused Documented By: Admin: 03/17/25 05:46 Dose: 100 mls/hr Documented By: Infusion: 03/16/25 05:35 Dose: Infused Documented By: [facility] Admin: 03/16/25 05:05 Dose: 100 mls/hr Documented By: GT Azithromycin (Zithromax) 500 mg in 255 mls @ 127.5 mls/hr IV Q24H NABOR Stop: 03/21/25 04:59 Last Infusion: 03/17/25 08:43 Dose: Infused Documented By: AADon Admin: 03/17/25 05:46 Dose: 127.5 mls/hr Documented By: Infusion: 03/16/25 07:24 Dose: Infused Documented By: Admin: 03/16/25 05:05 Dose: 127.5 mls/hr Documented By: GT Pantoprazole Sodium 40 mg/ (Dextrose) 100 mls @ 20 mls/hr IV BID NABOR Stop: 04/15/25 08:59 Last Infusion: 03/17/25 13:36 Dose: Infused Documented By: Admin: 03/17/25 08:38 Dose: 8 mg/hr, 20 mls/hr Documented By: AADon Infusion: 03/17/25 01:35 Dose: Infused Documented By: [facility] Admin: 03/16/25 20:31 Dose: 8 mg/hr, 20 mls/hr Documented By: [facility] Infusion: 03/16/25 14:11 Dose: Infused Documented By: AADon Admin: 03/16/25 08:53 Dose: 8 mg/hr, 20 mls/hr Documented By: SHERIDAN Miscellaneous (Lisdexamfetamine [Vyvanse] 20 Mg - Order Awaiting Action) 1 each N/A QS [facility] Stop: 04/15/25 00:00 Last Admin: 03/17/25 15:07 Dose: Not Given Documented By: AADon Admin: 03/17/25 08:33 Dose: Not Given Documented By: Admin: 03/17/25 01:05 Dose: Not Given Documented By: [facility] Admin: 03/16/25 16:25 Dose: Not Given Documented By: Admin: 03/16/25 08:48 Dose: Not Given Documented By: AADon Admin: 03/15/25 23:33 Dose: Not Given Documented By: GT Ondansetron HCl (Ondansetron Inj 2 Mg/Ml 2 Ml Vial) 4 mg IV Q6H PRN PRN Reason: Nausea And Vomiting Stop: 04/16/25 13:37 Last Admin: 03/17/25 13:45 Dose: 4 mg Documented By: SHERIDAN
[2025-03-17] MEDS: LAVAGE SOLUTION 4000ML PO SCH (18:07)
--- NOTE | 2025-03-18 08:43 | Gastroenterology Progress Note ---
Date of Service March 18, 2025 Assessment & Plan (1) Bright red rectal bleeding: Plan: 39 year old male with history of asthma, ADHD, depression, anxiety, irritable bowel syndrome admitted w/ abnormal outpatient labs, symptomatic anemia w/ HGB 6.5 s/p 1 unit RBCs w/ HGB 8.1. He endorses daily episodes of hematochezia x years, previously thought related to hemorrhoids . Maintain NPO status Plan for EGD/Colonoscopy today Trend H&H Monitor/document GI output Transfuse PRN per primary team We appreciate assistance in the management of any serological abnormality and corrections to include: hemoglobin >7, INR <2, platelets >50,000, potassium levels >3.5 but <5.3, and sodium levels within 5 points of the reference range prior to endoscopic evaluation. (2) Symptomatic anemia: Admission and Anticipated Discharge Date Admission Date: March 15, 2025 Supervising Physician Co-Signing Physician Notes I saw and examined this patient with our nurse practitioner and agree with her assessment and plan. Significant anemia with history of rectal bleeding. Proceed with endoscopy and colonoscopy today. Subjective Pt was seen and evaluated, chart reviewed. Family at bedside. Is NPO in anticipation of EGD/Colonoscopy today. Endorses a previous diagnosis of IBS w/ chronic hemorrhoidal bleeding. Reports near daily episodes of hematochezia for at least 10 years but that this had worsened a few years ago. Blood is BRB, in toilet bowl, on toilet tissue and coating stool. No family history of IBD but there is family history of colon cancer. No fever, chills, CP, SOB. Review of Systems Review of Systems: All other findings negative except as noted in HPI. Physical Exam Constitutional: WD/WN, vitals as above Respiratory: normal respiratory effort, lungs clear to auscultation Cardiovascular: Rate/Rhythm: regular rate and regular rhythm Gastrointestinal (Abdomen): normal bowel sounds, soft, nontender, no hepatosplenomegaly Skin: no rashes, warm and dry Results & Data Results & Data Vital Signs (Past 12 Hours) Vital Signs Temp Pulse Pulse Resp BP Pulse Ox O2 Del Method 03/18/25 08:00 98.1 F 87 18 136/75 98 Room Air 03/18/25 07:22 Room Air 03/18/25 03:01 98.2 F 70 17 124/80 97 Room Air 03/17/25 23:07 99.0 F 75 19 125/82 97 Room Air 03/17/25 22:02 83 Laboratory Results 03/17/25 Range/Units 11:52 WBC 3.81 L (4.8-10.8) K/ul RBC 3.79 L (4.70-6.10) M/uL Hgb 8.1 L (14.0-18.0) g/dl Hct 26.9 L (42.0-52.0) % MCV 71.0 L (80.0-100.0) fL MCH 21.4 L (25.0-34.0) pg MCHC 30.1 L (32.0-36.0) g/dL RDW Std Deviation 39.5 (36.4-46.3) fL RDW Coeff of Tanisha 15.9 H (11.5-14.5) % Plt Count 275 (130-400) K/uL MPV 8.7 L (9.4-12.4) fL PG Care Time/CCT Total # of Minutes Spent Total Time Spent with Patient: Total time spent is greater than 50% in coordination of care (as documented) at patient's floor/unit and/or counseling patient: Coding Level of Care Code None Diagnoses Bright red rectal bleeding K62.5 Symptomatic anemia D64.9
--- NOTE | 2025-03-18 10:15 | Anesthesiology Consultation ---
Date of Service March 18, 2025 Assessment & Plan Chart Review Chart Review: Acceptable Risk for Surgery and Patient NOT seen in Pre Admission Testing Consults Requested none History Surgery Operation Date: 03/18/25 16:30 Proposed Procedures p Colonoscopy EGD Dr. Tim Dumont MD Height/Weight Height: 6 ft 3 in Weight: 84.5 kg Allergies Allergy/AdvReac Type Severity Reaction Status Date / Time peanut Allergy Intermediate THROAT Verified 03/15/25 20:51 CLOSED/HIVES nickel Allergy Mild RASH Verified 03/15/25 20:51 Medications Home Medications Medication Instructions Recorded Confirmed Last Taken albuterol sulfate 90 mcg/actuation 2 inh inhalation Q6H PRN Shortness 03/08/25 03/15/25 Unknown breath activated powder inhaler Of Breath Or Wheezing escitalopram oxalate 10 mg tablet 10 mg PO DAILY 03/08/25 03/15/25 03/15/25 (Lexapro) lisdexamfetamine 20 mg capsule 20 mg PO DAILY 03/08/25 03/15/25 03/15/25 (Vyvanse) omeprazole 20 mg capsule,delayed 20 mg PO BID #60 caps 03/08/25 03/15/25 03/15/25 08:00 release fluticasone propionate 50 2 spray intranasal DAILY 03/15/25 03/15/25 03/15/25 mcg/actuation nasal spray,suspension Active Medications Generic Name Dose Route Start Last Admin Trade Name Freq PRN Reason Stop Dose Admin Acetaminophen 650 mg 03/15/25 23:26 03/17/25 21:37 Acetaminophen 325 Mg Tab PO 04/14/25 23:25 650 mg Q4H PRN Administration Pain or Fever Escitalopram Oxalate 10 mg 03/16/25 09:00 03/18/25 08:22 Escitalopram Oxalate 10 Mg Tab PO 04/15/25 08:59 10 mg DAILY NABOR Administration Ceftriaxone Sodium 2,000 mg in 50 mls @ 100 mls/hr 03/16/25 05:00 03/18/25 06:43 Rocephin IV 03/21/25 04:59 Infused Q24H NABOR Infusion Azithromycin 500 mg in 255 mls @ 127.5 mls/hr 03/16/25 05:00 03/18/25 08:57 Zithromax IV 03/21/25 04:59 Infused Q24H NABOR Infusion Pantoprazole Sodium 40 mg/ 100 mls @ 20 mls/hr 03/16/25 09:00 03/18/25 08:22 Dextrose IV 04/15/25 08:59 8 mg/hr BID NABOR 20 mls/hr Administration 8 MG/HR Miscellaneous 1 each 03/16/25 00:00 03/18/25 08:20 Lisdexamfetamine [Vyvanse] 20 Mg - Order Awaiting Action N/A 04/15/25 00:00 Not Given QS NABOR Ondansetron HCl 4 mg 03/17/25 13:38 03/17/25 13:45 Ondansetron Inj 2 Mg/Ml 2 Ml Vial IV 04/16/25 13:37 4 mg Q6H PRN Administration Nausea And Vomiting Past Medical History Medical History Asthma High blood pressure Irritable bowel syndrome with diarrhea Bright red rectal bleeding Left knee pain Low back strain Past Family History Family History Grandmother (Maternal) Colorectal cancer Mother Depression Colonic polyp Hypertension Father Colonic polyp Hypertension Grandfather (Maternal) Heart disease Other Myocardial infarction Past Surgical History Surgical History History of surgery Craniosynostosis surgery S/P wisdom tooth extraction Plantar wart Social History Smoking Status: Never smoker Do You Dip or Chew Tobacco: No Hx Alcohol Use: No Hx Substance Use: Yes substance use type: marijuana Physical Exam Vital Signs Last Vital Signs Temp 36.7 C 03/18/25 08:00 Pulse 87 03/18/25 08:00 Resp 18 03/18/25 08:00 BP 136/75 03/18/25 08:00 Pulse Ox 98 03/18/25 08:00 O2 Del Method Room Air 03/18/25 08:00 Testing Laboratory Results 03/17/25 11:52 03/16/25 07:43 PT 11.4 Seconds (9.0-12.0) 03/15/25 20:25 INR 1.1 (0.9-1.1) 03/15/25 20:25 Urine Color Yellow 03/16/25 01:00 Urine Appearance Clear (Clear) 03/16/25 01:00 Urine pH 6.0 (4.5-7.5) 03/16/25 01:00 Ur Specific [place] 1.022 (1.000-1.030) 03/16/25 01:00 Urine Protein Negative (Negative) 03/16/25 01:00 Urine Glucose (UA) Negative (Negative) 03/16/25 01:00 Urine Ketones Trace (Negative) H 03/16/25 01:00 Urine Nitrite Negative (Negative) 03/16/25 01:00 Ur Leukocyte Esterase Negative (Negative) 03/16/25 01:00 Blood Type A Positive 03/15/25 20:25 Blood Type Cancelled 03/15/25 20:25 Antibody Screen Cancelled 03/15/25 20:25 Antibody Screen NEGATIVE 03/15/25 20:25
[2025-03-18 11:25] VITALS: TEMP 98.4
[2025-03-18] MEDS ORDERED: PROPOFOL IV EMULSION 10 MG/ML 20 ML VIAL IV ONE (12:14)
[2025-03-18] MEDS ORDERED: LIDOCAINE 2% 2 ML VIAL/AMP(20MG/ML) INFIL ONE (12:14)
[2025-03-18 12:42] VITALS: RESP 16
--- NOTE | 2025-03-18 12:43 | GI REPORT ---
[facility] Patient: REGINALD GILES : 1985 Sex at : Male Age: 39 Years Procedure: Upper GI endoscopy Date: 03/18/2025 Attending Physician: West Dumont MD Referring MD: Bulmaro Romero MD Indications: - Anemia GI bleed Medications: - Monitored Anesthesia Care Complications: - No immediate complications. Procedure: - Prior to the procedure, a History and Physical was performed, and patient medications and allergies were reviewed. The patient's tolerance of previous anesthesia was also reviewed. The risks and benefits of the procedure and the sedation options and risks were discussed with the patient. All questions were answered, and informed consent was obtained. [Anticoagulant Agents] [Days Prior to Procedure]. [ASA Grade]. After reviewing the risks and benefits, the patient was deemed in satisfactory condition to undergo the procedure. - The egd scope was introduced through the mouth and advanced to the second part of the duodenum. - The upper GI endoscopy was accomplished without difficulty. - The patient tolerated the procedure well. Findings: - The examined esophagus was normal. - Patchy mild inflammation [Hemorrhage] characterized by erythema was found in the gastric antrum. [Number of Biopsies] biopsies were obtained [Site] [Device] [Purpose]. Biopsies were taken with a cold forceps for [Purpose]. - A few diminutive sessile polyps were found in the gastric body. Biopsies were taken with a cold forceps for histology. - Two 2 to 3 mm sessile polyps were found in the second portion of the duodenum. These polyps were removed with a cold biopsy forceps. Resection was complete, and retrieval was complete. Random biopsies taken to rule out Celiac Sprue. Impression: - Normal esophagus. - Gastritis, characterized by erythema. Biopsied. - A few gastric polyps. Biopsied. - Two duodenal polyps. Resected and retrieved. Random duodenal biopsies taken for Celiac Sprue. Recommendation: - Resume previous diet. - Patient has a contact number available for emergencies. The signs and symptoms of potential delayed complications were discussed with the patient. Return to normal activities tomorrow. Written discharge instructions were provided to the patient. Procedure Code(s): - 05160, Esophagogastroduodenoscopy, flexible, transoral; with biopsy, single or multiple Diagnosis Code(s): - K29.70, Gastritis, unspecified, without bleeding - K31.7, Polyp of stomach and duodenum CPT(R) - 2022 copyright [employer]. All Rights Reserved. The CPT codes, CCI edits and ICD codes generated are intended as suggestions and were generated based on input data. These codes are preliminary and upon information coder review may be revised to meet current compliance and payer requirements. The provider is responsible for the final determination of appropriate codes, and modifiers. West Dumont MD This document has been electronically signed. Note Initiated:03/18/2025 Note Completed:03/18/2025 12:41 PM \\[email or web address]\Data\Provation\Results\LIVE\[id number].pdf
--- NOTE | 2025-03-18 12:46 | GI REPORT ---
[facility] Patient: REGINALD GILES : 1985 Sex at : Male Age: 39 Years Procedure: Colonoscopy Date: 03/18/2025 Attending Physician: West Dumont MD Referring MD: Bulmaro Romero MD Indications: - Evaluation of unexplained GI bleeding presenting with Hematochezia Medications: - Monitored Anesthesia Care Complications: - No immediate complications. Procedure: - Prior to the procedure, a History and Physical was performed, and patient medications, allergies and sensitivities were reviewed. The patient's tolerance of previous anesthesia was reviewed. - The risks and benefits of the procedure and the sedation options and risks were discussed with the patient. All questions were answered and informed consent was obtained. - ASA Grade Assessment: I - A normal, healthy patient. - Prior Anticoagulants: The patient has taken no anticoagulant or antiplatelet agents. - The adult colonscope was introduced through the anus and advanced to the terminal ileum, with identification of the appendiceal orifice and ileocecal valve. - The appendiceal orifice and the ileocecal valve were photographed. - The colonoscopy was performed without difficulty. - The patient tolerated the procedure well. - The quality of the bowel preparation was adequate. Findings: - The perianal and digital rectal examinations were normal. - The terminal ileum appeared normal. - A patchy area of mildly erythematous mucosa was found in the rectum and in the sigmoid colon. Biopsies were taken with a cold forceps for histology. - No other significant abnormalities were identified in a careful examination of the remainder of the colon. Impression: - The examined portion of the ileum was normal. - Erythematous mucosa in the rectum and in the sigmoid colon. Biopsied. Recommendation: - Discharge patient to home. - Patient has a contact number available for emergencies. The signs and symptoms of potential delayed complications were discussed with the patient. Return to normal activities tomorrow. Written discharge instructions were provided to the patient. - Resume previous diet. Procedure Code(s): - 08888, Colonoscopy, flexible; with biopsy, single or multiple Diagnosis Code(s): - K92.1, Melena (includes Hematochezia) - K62.89, Other specified diseases of anus and rectum - K63.89, Other specified diseases of intestine CPT(R) - 202 copyright [employer]. All Rights Reserved. The CPT codes, CCI edits and ICD codes generated are intended as suggestions and were generated based on input data. These codes are preliminary and upon leather whitener review may be revised to meet current compliance and payer requirements. The provider is responsible for the final determination of appropriate codes, and modifiers. West Dumont MD This document has been electronically signed. Note Initiated:03/18/2025 Note Completed:03/18/2025 12:45 PM \\[email or web address]\[email or web address]\Data\Provation\Results\LIVE\[id number]
[2025-03-18 13:23] VITALS: BP 113/67; PULSE 62; O2SAT 95
--- NOTE | 2025-03-18 13:35 | Discharge Summary ---
Discharge Summary Date of Service March 18, 2025 Principal Dx & Hospital Course #1 = Principal Diagnosis (1) Symptomatic anemia: 39-year-old male with past medical history significant for asthma, ADHD, depression, anxiety, irritable bowel syndrome comes because of symptomatic anemia. Patient states since last 3 months since she had flu and the sinus infection is feeling weak and achy. Symptomatic Acute Blood Loss Anemia Iron Deficiency Anemia -Hemoglobin 7.8, now down to 6.5 -Had episode of near syncope. Dyspnea on exertion. Tachycardia. -On and off dizzy -Says he has irritable bowel syndrome and has blood per rectum on and off for last 10 years Plan: -40 IV bid protonix -CBC q12 hours -consented for blood, transfuse 2 units -GI consulted, EGD/colonoscopy Tuesday, prep ordered, NPO after midnight ordered -hgb goal>7 Multifocal pneumonia -elevated d dimer. cta chest no pe and Doppler no dvt -but ct chest shows multifocal pneumonia Plan: -continue Rocephin and azithromycin x5 days (day 2/5) ADHD Depression -Anxiety -Continue home medications Notes For Next Care Provider 39-year-old male with past medical history significant for asthma, ADHD, depression, anxiety, irritable bowel syndrome comes because of symptomatic anemia. On medicine, 1 unit of blood given for Hgb 6.5. GI consulted, prepped for colonoscopy and EGD in which biopsies were taken due to inflammation and polyps noted. Autoimmune panel and other blood work sent to finish workup of anemia. On 03/18/2025 patient medically stable for discharge. To do: [ ] f/u on autoimmune panel, other blood work [ ] CBC in one week Medication Changes From Visit -see below Admission HPI Per Admitting Provider 39-year-old male with past medical history significant for asthma, ADHD, depression, anxiety, irritable bowel syndrome comes because of symptomatic anemia. Patient states since last 3 months since she had flu and the sinus infection is feeling weak and achy. Last Tuesday when standing near the fridge he became dizzy felt like passing out, slowly kneeled down and held the floor with his hands and stayed there until he felt better. During that time he did not pass out but could not remember clearly the event. Last 1 to 2 weeks weeks having shortness of breath on exertion and tachycardia. Feeling dizzy on and off. He says he has irritable bowel syndrome and on and off has blood per rectum for last 10 years. Last 1 week the bleeding was more frequent but not unusual as per the patient. Denies any chest pain. No nausea. Micturating okay. No hematuria. Has some headache. Afebrile. In the ER hemodynamics are okay. Resting comfortably. Past medical history. As mentioned above Past surgical history. Dental surgery. Social history. Former smoke cigarettes as per [facility]. No alcohol currently. Uses marijuana as per [facility]. Family history. Father had bladder cancer. Lung cancer. Discharge Exam Gen: A&O 3 NAD, less pale today HEENT: NCAT, EOMI, not icteric. External ears normal. No rhinorrhea. Moist mucous membranes. Neck: Supple, full range of motion, no observable masses, No meningeal sign. Lungs: No Respiratory distress. CV: RRR, no edema. Abdomen: Soft, nondistended, No rebound tenderness. MSK: No joint swelling, no redness. Skin: No rashes, petechiae, lesions. Normal color per patient. Neuro: Normal Gait, Grossly intact. Psych: Appropriate for situation. Updated Medication List Medication Instructions Recorded Confirmed Type albuterol sulfate 90 mcg/actuation 2 inh inhalation Q6H PRN Shortness 03/08/25 03/15/25 History breath activated powder inhaler Of Breath Or Wheezing escitalopram oxalate 10 mg tablet 10 mg PO DAILY 03/08/25 03/15/25 History (Lexapro) lisdexamfetamine 20 mg capsule 20 mg PO DAILY 03/08/25 03/15/25 History (Vyvanse) omeprazole 20 mg capsule,delayed 20 mg PO BID #60 caps 03/08/25 03/15/25 Rx release fluticasone propionate 50 2 spray intranasal DAILY 03/15/25 03/15/25 History mcg/actuation nasal spray,suspension amoxicillin 500 mg-potassium 1 tab PO BID 5 days #10 tabs 03/18/25 Rx clavulanate 125 mg tablet (Augmentin) azithromycin 500 mg tablet 500 mg PO DAILY 5 days #5 tabs 03/18/25 Rx Hospital Stay Data Consultations 03/15/25 21:32 ED Decision to Admit Stat 03/16/25 07:49 Consult Gastroenterology Routine Procedures Performed Operation Date: 03/18/25 16:30 Actual Procedures s EGD Polypectomy - [place] MD s EGD Biopsy Cytology - [place] MD p Colonoscopy Biopsy Cytology - [place] MD Diagnostic Imagining Performed 03/16/25 00:22 CT angio chest PE protocol Urgent US venous doppler LE BI Urgent Pending Results Patient Have Any Pending Studies at Discharge: No Discharge Instructions Given to Patient (Per Discharging Provider) 1. Please follow up with GI and PCP. 2. Follow up CBC in one week. 3. Finish course of abx. Total Time Total Time Spent Total Time Spent (In Minutes): I spent a total of 40 minutes in direct patient care, including [id number] time with the patient and/or family, reviewing medical records, ordering and reviewing diagnostic tests, and coordinating care with other healthcare providers. This time includes: history taking, physical examination, medical decision making, counseling, ECG interpretation, imaging interpretation, lab interpretation, orders, and education, excluding time spent in the performance of separately billed services.
--- NOTE | 2025-03-18 15:00 | Anesthesiology Progress Note ---
Date of Service March 18, 2025 Anesthesia Post Procedure Vital Signs Vital Signs: Temp Pulse Pulse Resp BP BP Pulse Ox 03/18/25 13:40 36.9 C 62 16 119/59 L 113/67 95 03/18/25 13:19 36.9 C 62 16 113/67 95 03/18/25 13:04 69 16 119/59 L 99 03/18/25 12:49 82 16 113/65 99 03/18/25 12:34 85 16 99/59 L 100 03/18/25 12:27 80 03/18/25 11:24 36.9 C 85 18 142/94 H 98 03/18/25 08:00 36.7 C 87 18 136/75 98 03/18/25 07:22 03/18/25 03:01 36.8 C 70 17 124/80 97 03/17/25 23:07 37.2 C 75 19 125/82 97 03/17/25 22:02 83 03/17/25 19:59 36.8 C 95 H 18 144/96 H 96 03/17/25 16:07 38.4 C H 98 H 18 129/76 96 O2 Del Method 03/18/25 13:40 03/18/25 13:19 Room Air 03/18/25 13:04 Room Air 03/18/25 12:49 Room Air 03/18/25 12:34 Room Air 03/18/25 12:27 03/18/25 11:24 Room Air 03/18/25 08:00 Room Air 03/18/25 07:22 Room Air 03/18/25 03:01 Room Air 03/17/25 23:07 Room Air 03/17/25 22:02 03/17/25 19:59 Room Air 03/17/25 16:07 Room Air Transfer of Care Handoff Completed per policy Notes Mental Status: alert / awake / arousable Patient Amnestic to Procedure: Yes Nausea / Vomiting: adequately controlled Pain: adequately controlled Airway Patency, RR, SpO2: stable & adequate BP & HR: stable & adequate Hydration State: stable & adequate Anesthetic Complications: no major complications apparent and Pt Satisfied with anesthetic care
[2025-03-22 14:37] LABS: Anti Cardiolipin Ab IgG <2.0 GPL-U/mL; Anti Cardiolipin Ab IgM <2.0 MPL-U/mL; Anti Nuclear Antibody Screen NEGATIVE (NEGATIVE); Anti-Centromere Ab <1.0 NEG AI (<1.0 NEG); Anti-SS-A <1.0 NEG AI (<1.0 NEG); Anti-SS-B <1.0 NEG AI (<1.0 NEG); Chromatin Antibody <1.0 NEG AI (<1.0 NEG); Complement C3 173 mg/dL (82-185); DNA ds Crithidia NEGATIVE (NEGATIVE); Haptoglobin 209 mg/dL (43-212); Microsomal Ab 1 IU/mL (<9); RNP Antibody <1.0 NEG AI (<1.0 NEG); Sm Antibody <1.0 NEG AI (<1.0 NEG)
== END 2025-03-18 14:18 | disposition home or self-care (01) | DRG 377 ==
LOC: ED 20:05 → 2S 22:22
DX: Z79.899 Other long term (current) drug therapy; R00.0 Tachycardia, unspecified; Z87.891 Personal history of nicotine dependence; R55 Syncope and collapse; Z88.8 Allergy status to other drugs, medicaments and biological substances; J18.9 Pneumonia, unspecified organism; F32.A Depression, unspecified; D62 Acute posthemorrhagic anemia; K58.9 Irritable bowel syndrome, unspecified; K31.7 Polyp of stomach and duodenum; Z91.010 Allergy to peanuts; F41.9 Anxiety disorder, unspecified; R06.09 Other forms of dyspnea; D50.9 Iron deficiency anemia, unspecified; K62.5 Hemorrhage of anus and rectum; J45.909 Unspecified asthma, uncomplicated; F90.9 Attention-deficit hyperactivity disorder, unspecified type